=== PATIENT | male | born 1965 | race Two or more races ===

== ENCOUNTER 2016-12-28 14:33 | Emergency (ER) | payer MEDICAID ==
[~2016-12-28] VITALS: Ht 172.7 cm; Wt 117.9 kg
[~2016-12-28 14:33] MED LIST: ALBU18 IN; ALL100T PO; ASPI-231 PO; ATOR40TA52; CALC667C5 PO; CINA90TA; CLOP75TA28 PO; DOXY100C2; ERGO1CAP23 PO; ERGO1CAP6; ESCI10TA53 PO; FERR1TAB17 PO; GABA-339 PO; GABA600T PO; GLIM2TAB33 PO; HYDR-4663 PO; MID10T PO; SEVE800T PO; SODI650T
[2016-12-28] MEDS ORDERED: DEXTROSE 50% SYRINGE 50 ML IV ONE (14:39)
[2016-12-28] MEDS ORDERED: SODIUM CHLORIDE 0.9% 1,000 ML IV ONE (14:41)
[2016-12-28] MEDS ORDERED: DEXTROSE (50%) 50ML SYRG IV ONE (14:45)
[2016-12-28 14:58] LABS: Nucleated Red Blood Cells % 0.1 %; White Blood Cell 16.7 10^3/uL (4.4-10.8)
[2016-12-28 15:00] VITALS: BP 85/65
[2016-12-28 15:00] LABS: Basophils # (auto) 0.2 uL; Eosinophils # (auto) 0.1 uL; Eosinophils % (auto) 0.8 % (0.0-7.0); Hematocrit 30.8 % (41.0-53.0); Hemoglobin 10.3 g/dL (13.5-17.5); Lymphocytes % (auto) 5.8 % (10.0-50.0); Mean Corpuscular Hemoglobin 29.5 pg (28.0-32.0); Mean Corpuscular Hgb Conc. 33.3 g/dL (32.0-36.0); Mean Corpuscular Volume 88.5 fL (80.0-100.0); Mean Platelet Volume 6.7 fL (6.9-10.8); Monocytes # (auto) 2.7 uL; Neutrophils # (auto) 12.8 uL; Neutrophils % (auto) 76.4 % (37.0-80.0); Red Cell Distribution Width 16.2 % (11.8-14.3)
[2016-12-28] MEDS ORDERED: ACETAMINOPHEN 325 MG TAB PO ONE (15:00)
[2016-12-28 15:03] LABS: Platelet Count (auto) 486 10^3/uL (140-450)
[2016-12-28 15:18] LABS: Albumin 3.2 g/dL (3.4-5.0); Alkaline Phosphatase 103 U/L (45-117); Anion Gap 12 (5-15); Aspartate Aminotransferase 33 U/L (15-37); BUN/Creatinine Ratio 5.7; Bilirubin, Total 0.6 mg/dL (0.2-1.0); Blood Urea Nitrogen 54 mg/dL (7-18); Calcium 9.3 mg/dL (8.5-10.1); Carbon Dioxide 28 mmol/L (21-32); Chloride 89 mmol/L (98-107); GFR African American 8 mL/min; GFR Non-African American 6 mL/min; Glucose 58 mg/dL (74-106); Magnesium 2.1 mg/dL (1.6-2.6); Sodium 129 mmol/L (136-145); Total Protein 8.6 g/dL (6.4-8.2)
[2016-12-28 17:35] LABS: REFLEX LACTIC ACID YES OR NO YES
== END 2016-12-28 15:40 | disposition left against medical advice (07) ==
LOC: ER 14:33 → EDBD 14:33 → ER 15:22
DX: E11.65 Type 2 diabetes mellitus with hyperglycemia (principal); I95.9 Hypotension, unspecified; E66.9 Obesity, unspecified; I13.2 Hypertensive heart and chronic kidney disease with heart failure and with stage 5 chronic kidney disease, or end stage renal disease; E11.22 Type 2 diabetes mellitus with diabetic chronic kidney disease; N18.9 Chronic kidney disease, unspecified; I50.9 Heart failure, unspecified; M10.9 Gout, unspecified; E78.5 Hyperlipidemia, unspecified; I25.2 Old myocardial infarction; Z86.73 Personal history of transient ischemic attack (TIA), and cerebral infarction without residual deficits; Z95.1 Presence of aortocoronary bypass graft; Z79.899 Other long term (current) drug therapy; Z68.39 Body mass index [BMI] 39.0-39.9, adult; Z53.29 Procedure and treatment not carried out because of patient's decision for other reasons
CPT/HCPCS: 36415; 80053; 80320; 82962; 83605; 83735; 84484; 85025; 87040; 93005; 96374; 99291; J7042; 94761

== ENCOUNTER 2017-02-09 16:46 | Inpatient (IN) | payer MEDICAID ==
[~2017-02-09] VITALS: Ht 167.6 cm; Wt 83.4 kg
[~2017-02-09 16:46] MED LIST changes: -DOXY100C2; -ERGO1CAP23 PO; -GABA600T PO; -HYDR-4663 PO; +HYDR-4683 PO
[2017-02-09 18:01] LABS: Basophils # (auto) 0 uL; Basophils % (auto) 0.5 % (0.0-2.0); Eosinophils # (auto) 0.3 uL; Hematocrit 26.2 % (41.0-53.0); Hemoglobin 8.1 g/dL (13.5-17.5); Lymphocytes # (auto) 0.6 uL; Lymphocytes % (auto) 7.6 % (10.0-50.0); Mean Corpuscular Hgb Conc. 30.9 g/dL (32.0-36.0); Mean Corpuscular Volume 93.8 fL (80.0-100.0); Monocytes # (auto) 0.8 uL; Monocytes % (auto) 9.7 % (0.0-12.0); Neutrophils # (auto) 6.3 uL; Neutrophils % (auto) 78.2 % (37.0-80.0); Platelet Count (auto) 344 10^3/uL (140-450); Red Cell Distribution Width 16.7 % (11.8-14.3)
[2017-02-09 18:35] LABS: BUN/Creatinine Ratio 5.1; Bilirubin, Total 1.6 mg/dL (0.2-1.0); Calcium 7.7 mg/dL (8.5-10.1); Magnesium 2.4 mg/dL (1.6-2.6); Potassium 3.7 mmol/L (3.5-5.1); Total Protein 7.7 g/dL (6.4-8.2)
[2017-02-09] MEDS ORDERED: FAMOTIDINE (10MG/ML) 2ML VL IV ONE (21:00)
[2017-02-09] MEDS ORDERED: ONDANSETRON HCL 4 MG/2 ML VIAL IV ONE (21:00)
[2017-02-09] MEDS ORDERED: SODIUM CHLORIDE 0.9% 1,000 ML IV ONE (21:00)
[2017-02-09] MEDS ORDERED: HYDROmorphone HCL 2 MG/ML VL IV ONE (21:15)
[2017-02-10] VITALS (7 sets, daily range): BP systolic 102–127; BP diastolic 67–81
[2017-02-10] MEDS ORDERED: MORPHINE SULF INJ 2 MG/ML SYRINGE 1ML IV PRN (00:15)
[2017-02-10] MEDS ORDERED: NITROGLYCERIN 0.4 MG SL TAB SL PRN (00:15)
[2017-02-10] MEDS ORDERED: ONDANSETRON HCL 4 MG/2 ML VIAL IV PRN (00:30)
[2017-02-10] MEDS ORDERED: HYDROmorphone HCL 2 MG/ML VL IV PRN (00:30)
[2017-02-10] MEDS ORDERED: IBUPROFEN 600 MG TAB PO PRN (00:30)
[2017-02-10] MEDS: HYDROcodone-ACET 5/325MG TAB PO PRN ×2 (04:11→08:47)
[2017-02-10 05:07] LABS: Basophils # (auto) 0 uL; Basophils % (auto) 0.6 % (0.0-2.0); Hemoglobin 7.2 g/dL (13.5-17.5); Red Cell Distribution Width 16.4 % (11.8-14.3)
[2017-02-10 05:11] LABS: Eosinophils # (auto) 0.4 uL; Eosinophils % (auto) 4.9 % (0.0-7.0); Hematocrit 21.9 % (41.0-53.0); Lymphocytes % (auto) 13.3 % (10.0-50.0); Mean Corpuscular Hemoglobin 29.7 pg (28.0-32.0); Mean Corpuscular Hgb Conc. 32.7 g/dL (32.0-36.0); Mean Corpuscular Volume 90.7 fL (80.0-100.0); Monocytes % (auto) 13.5 % (0.0-12.0); Neutrophils % (auto) 67.7 % (37.0-80.0); Platelet Count (auto) 277 10^3/uL (140-450); White Blood Cell 7.4 10^3/uL (4.4-10.8)
[2017-02-10 05:25] LABS: Albumin 2.6 g/dL (3.4-5.0); Calcium 7.4 mg/dL (8.5-10.1); Potassium 3.7 mmol/L (3.5-5.1)
[2017-02-10 05:29] LABS: BUN/Creatinine Ratio 5.4
[2017-02-10] MEDS ORDERED: ACETAMINOPHEN 500 MG TAB PO PRN (06:00)
[2017-02-10] MEDS ORDERED: DEXTROSE (50%) 50ML SYRG IV PRN (06:00)
[2017-02-10 06:16] LABS: Bilirubin, Total 1.2 mg/dL (0.2-1.0); Total Protein 6.7 g/dL (6.4-8.2)
[2017-02-10] MEDS: InsuLIN REG 1unit/0.01ml Soln (100units/ml) SC SCH ×3 (07:00→17:23)
[2017-02-10] MEDS: ACCU-CHEK COMFORT CURVE STRIP VI SCH ×3 (07:01→17:22)
[2017-02-10] MEDS: SEVELAMER 800 MG TAB PO SCH ×3 (08:46→18:04)
[2017-02-10 08:58] LABS: Urine Bilirubin Negative (Negative); Urine Blood Negative /uL (Negative); Urine Color Yellow (Yellow); Urine Glucose 1+ mg/dL (Normal); Urine Ketone Negative (Negative); Urine Nitrite Negative (Negative); Urine RBC 1 /hpf (0 - 3); Urine Squamous Epithelial Cell FEW /hpf (<5); Urine pH 6.5 (5.0-8.0)
[2017-02-10] MEDS ORDERED: FAMOTIDINE (10MG/ML) 2ML VL IV SCH (10:00)
[2017-02-10] MEDS ORDERED: GABAPENTIN 300 MG CAP PO SCH (10:00)
[2017-02-11] MEDS ORDERED: EPOETIN ALFA 10,000 UNIT/1 ML VIAL IV ONE (12:00)
[2017-02-11] MEDS ORDERED: SODIUM CHL 0.9% 1000 ML BAG XX ONE (12:00)
== END 2017-02-10 18:35 | disposition home or self-care (01) | DRG 249 ==
LOC: ER 16:54 → TELE 16:55 → TELE-WESTW 02-10 01:40
PROVIDERS: ADMIT Nurse Practitioner Family; ATTEND Internal Medicine
DX: K52.9 Noninfective gastroenteritis and colitis, unspecified (principal); I13.2 Hypertensive heart and chronic kidney disease with heart failure and with stage 5 chronic kidney disease, or end stage renal disease; N18.6 End stage renal disease; I42.9 Cardiomyopathy, unspecified; E11.22 Type 2 diabetes mellitus with diabetic chronic kidney disease; E11.65 Type 2 diabetes mellitus with hyperglycemia; N25.81 Secondary hyperparathyroidism of renal origin; E44.1 Mild protein-calorie malnutrition; E87.1 Hypo-osmolality and hyponatremia; E78.5 Hyperlipidemia, unspecified; D63.1 Anemia in chronic kidney disease; I25.10 Atherosclerotic heart disease of native coronary artery without angina pectoris; R59.1 Generalized enlarged lymph nodes; M19.90 Unspecified osteoarthritis, unspecified site; M10.9 Gout, unspecified; J44.9 Chronic obstructive pulmonary disease, unspecified; I50.9 Heart failure, unspecified; Z99.2 Dependence on renal dialysis; Z95.1 Presence of aortocoronary bypass graft; I25.2 Old myocardial infarction; Z79.82 Long term (current) use of aspirin; Z79.899 Other long term (current) drug therapy; Z68.29 Body mass index [BMI] 29.0-29.9, adult; Z82.3 Family history of stroke; Z83.3 Family history of diabetes mellitus; Z82.49 Family history of ischemic heart disease and other diseases of the circulatory system
CPT/HCPCS: 36415; 71010; 74176; 80053; 81001; 82962; 83690; 83735; 84484; 84550; 85025; 93005; 96361; 96374; 96375; 96376; J2405; J3490

== ENCOUNTER 2017-03-19 09:27 | Inpatient (IN) | payer MEDICAID ==
[~2017-03-19] VITALS: Ht 167.6 cm; Wt 108.9 kg
[2017-03-19] MEDS ORDERED: SODIUM CHLORIDE 0.9% 1,000 ML IV ONE (09:53)
[2017-03-19 09:56] LABS: Eosinophils # (auto) 0 uL; Eosinophils % (auto) 0.1 % (0.0-7.0); Hemoglobin 8.4 g/dL (13.5-17.5); Lymphocytes # (auto) 0.2 uL; Monocytes # (auto) 1.1 uL
[2017-03-19 09:57] LABS: Basophils # (auto) 0 uL; Basophils % (auto) 0.1 % (0.0-2.0); Hematocrit 26.9 % (41.0-53.0); Lymphocytes % (auto) 0.9 % (10.0-50.0); Mean Corpuscular Hemoglobin 28.2 pg (28.0-32.0); Mean Corpuscular Hgb Conc. 31.3 g/dL (32.0-36.0); Mean Corpuscular Volume 90.1 fL (80.0-100.0); Monocytes % (auto) 5.9 % (0.0-12.0); Neutrophils # (auto) 17.1 uL; Platelet Count (auto) 282 10^3/uL (140-450); Red Blood Cells 2.99 10^6/uL (4.5-5.90); Red Cell Distribution Width 18.7 % (11.8-14.3); White Blood Cell 18.4 10^3/uL (4.4-10.8)
[2017-03-19] MEDS ORDERED: LEVOFLOXACIN 500MG 100 ML IV ONE (10:00)
[2017-03-19] MEDS ORDERED: SODIUM CHLORIDE 0.9% 500 ML IV ONE (10:00)
[2017-03-19] MEDS ORDERED: ACETAMINOPHEN 500 MG TAB PO ONE (10:00)
[2017-03-19 10:18] LABS: Albumin 2.5 g/dL (3.4-5.0); Calcium 6.7 mg/dL (8.5-10.1); Potassium 4.6 mmol/L (3.5-5.1)
[2017-03-19 10:21] LABS: BUN/Creatinine Ratio 10.6
[2017-03-19 10:38] LABS: Total Protein 6.6 g/dL (6.4-8.2)
[2017-03-19 10:51] LABS: Lactic Acid w/Reflex 3.8 mmol/L (0.4-2.0)
[2017-03-19] MEDS ORDERED: DEXTROSE (50%) 50ML SYRG IV PRN (12:15)
[2017-03-19] MEDS ORDERED: LACTULOSE 20Gm/30ML SOLN PO PRN (12:15)
[2017-03-19] MEDS ORDERED: NITROGLYCERIN 0.4 MG SL TAB SL PRN (12:15)
[2017-03-19] MEDS: methylPREDNISolone SOD SUCC 40 MG/ML VL IV SCH (12:40)
[2017-03-19] MEDS: MORPHINE SULFATE 4 MG/ML SYR/VIAL IV PRN ×2 (12:40→22:51)
[2017-03-19] MEDS: PANTOPRAZOLE 40 MG/10 ML VIAL IV SCH (12:40)
[2017-03-19] MEDS: ONDANSETRON HCL 4 MG/2 ML VIAL IV PRN ×2 (12:40→22:51)
[2017-03-19] MEDS: ENOXAPARIN SOD 30 MG/0.3 ML SYRINGE SC SCH (12:40)
[2017-03-19] MEDS: cefTRIAXone 1GM/10ml IVPUSH 10 ML IV SCH (12:46)
[2017-03-19] MEDS: MIDODRINE HCL 10 MG TAB PO SCH ×2 (13:36→22:00)
[2017-03-19] MEDS: IPRATROPIUM BROM 0.5 MG/2.5ML INH SOL NEB SCH ×3 (14:00→22:20)
[2017-03-19] MEDS: ALBUTEROL SULF 2.5 MG/0.5ML(0.5%) NEB SOLN NEB SCH ×3 (14:00→22:20)
[2017-03-19] MEDS ORDERED: EPOETIN ALFA 10,000 UNIT/1 ML VIAL IV ONE (16:00)
[2017-03-19] MEDS: ACCU-CHEK COMFORT CURVE STRIP VI SCH (18:11)
[2017-03-19] MEDS: CALCIUM CARB 500 MG CHEW TAB PO SCH (18:16)
[2017-03-19] MEDS: InsuLIN REG 1unit/0.01ml Soln (100units/ml) SC SCH (18:16)
[2017-03-19] MEDS: SEVELAMER 800 MG TAB PO SCH (18:21)
[2017-03-19] MEDS ORDERED: SODIUM BICARBONATE 650 MG TAB PO SCH (22:00)
[2017-03-19] MEDS ORDERED: GABAPENTIN 300 MG CAP PO SCH (22:00)
[2017-03-19] MEDS: ATORVASTATIN 20 MG TAB PO SCH (22:00)
[2017-03-20] MEDS: ACCU-CHEK COMFORT CURVE STRIP VI SCH ×4 (00:47→18:06)
[2017-03-20] MEDS: InsuLIN REG 1unit/0.01ml Soln (100units/ml) SC SCH ×4 (00:48→18:06)
[2017-03-20] MEDS: methylPREDNISolone SOD SUCC 40 MG/ML VL IV SCH ×2 (00:49→14:19)
[2017-03-20] MEDS: IPRATROPIUM BROM 0.5 MG/2.5ML INH SOL NEB SCH ×6 (02:30→22:00)
[2017-03-20] MEDS: ALBUTEROL SULF 2.5 MG/0.5ML(0.5%) NEB SOLN NEB SCH ×6 (02:30→22:00)
[2017-03-20 05:22] LABS: Basophils # (auto) 0 uL; Basophils % (auto) 0.5 % (0.0-2.0); Eosinophils # (auto) 0 uL; Hematocrit 28.6 % (41.0-53.0); Lymphocytes # (auto) 0.2 uL; Lymphocytes % (auto) 1.7 % (10.0-50.0); Mean Corpuscular Hemoglobin 28.1 pg (28.0-32.0); Mean Corpuscular Hgb Conc. 31.3 g/dL (32.0-36.0); Mean Corpuscular Volume 89.7 fL (80.0-100.0); Monocytes # (auto) 0.2 uL; Monocytes % (auto) 2.1 % (0.0-12.0); Neutrophils # (auto) 8.7 uL; Neutrophils % (auto) 95.7 % (37.0-80.0); Platelet Count (auto) 233 10^3/uL (140-450); Red Blood Cells 3.19 10^6/uL (4.5-5.90); White Blood Cell 9.1 10^3/uL (4.4-10.8)
[2017-03-20 05:47] LABS: Albumin 2.6 g/dL (3.4-5.0); BUN/Creatinine Ratio 9.6; Bilirubin, Total 0.7 mg/dL (0.2-1.0); Calcium 6.9 mg/dL (8.5-10.1); Potassium 4.8 mmol/L (3.5-5.1); Total Protein 7.2 g/dL (6.4-8.2)
[2017-03-20] MEDS: MIDODRINE HCL 10 MG TAB PO SCH ×3 (07:55→22:21)
[2017-03-20] MEDS: CALCIUM CARB 500 MG CHEW TAB PO SCH ×3 (08:17→18:10)
[2017-03-20] MEDS: SEVELAMER 800 MG TAB PO SCH ×3 (08:40→18:10)
[2017-03-20] MEDS ORDERED: SODIUM CHL 0.9% 1000 ML BAG XX ONE (09:15)
[2017-03-20] MEDS ORDERED: EPOETIN ALFA 10,000 UNIT/1 ML VIAL IV ONE (09:15)
[2017-03-20] MEDS: cefTRIAXone 1GM/10ml IVPUSH 10 ML IV SCH (09:36)
[2017-03-20] MEDS: HYDROcodone-ACET 5/325MG TAB PO PRN ×3 (09:51→22:21)
[2017-03-20] MEDS ORDERED: SENSIPAR 90 MG PO SCH (10:00)
[2017-03-20] MEDS ORDERED: ESCITALOPRAM 10 MG PO SCH (10:00)
[2017-03-20] MEDS ORDERED: CINACALCET HYDROCHLORIDE 30 MG TAB PO SCH (10:00)
[2017-03-20] MEDS ORDERED: LEVOFLOXACIN 500MG 100 ML IV SCH (10:00)
[2017-03-20] MEDS ORDERED: MIDODRINE HCL 10 MG TAB PO ONE (12:15)
[2017-03-20] MEDS: CITALOPRAM HYDROBR 20 MG TAB PO SCH (14:19)
[2017-03-20] MEDS: ASPirin 81 mg TAB PO SCH (14:19)
[2017-03-20] MEDS: PANTOPRAZOLE 40 MG/10 ML VIAL IV SCH (14:19)
[2017-03-20] MEDS: ENOXAPARIN SOD 30 MG/0.3 ML SYRINGE SC SCH (14:19)
[2017-03-20] MEDS: ALLOPURINOL 100 MG TAB PO SCH (14:19)
[2017-03-20] MEDS: CLOPIDOGREL BISULFATE 75 MG TAB PO SCH (14:19)
[2017-03-20] MEDS ORDERED: GABAPENTIN 300 MG CAP PO SCH (18:00)
[2017-03-20] MEDS: ATORVASTATIN 20 MG TAB PO SCH (22:21)
[2017-03-20] MEDS ORDERED: TEMAZEPAM 15 MG CAP PO ONE (23:30)
[2017-03-21] MEDS: methylPREDNISolone SOD SUCC 40 MG/ML VL IV SCH ×2 (00:30→11:56)
[2017-03-21] MEDS: ACCU-CHEK COMFORT CURVE STRIP VI SCH ×3 (01:30→11:49)
[2017-03-21] MEDS: InsuLIN REG 1unit/0.01ml Soln (100units/ml) SC SCH ×3 (01:30→11:55)
[2017-03-21] MEDS: ALBUTEROL SULF 2.5 MG/0.5ML(0.5%) NEB SOLN NEB SCH ×3 (02:00→10:05)
[2017-03-21] MEDS: IPRATROPIUM BROM 0.5 MG/2.5ML INH SOL NEB SCH ×3 (02:00→10:05)
[2017-03-21] MEDS: MIDODRINE HCL 10 MG TAB PO SCH (06:00)
[2017-03-21 06:15] LABS: BUN/Creatinine Ratio 10.3; Calcium 7.6 mg/dL (8.5-10.1); Potassium 4.4 mmol/L (3.5-5.1)
[2017-03-21] MEDS: cefTRIAXone 1GM/10ml IVPUSH 10 ML IV SCH (08:30)
[2017-03-21] MEDS: CALCIUM CARB 500 MG CHEW TAB PO SCH ×2 (08:30→11:55)
[2017-03-21] MEDS: SEVELAMER 800 MG TAB PO SCH ×2 (08:30→11:55)
[2017-03-21] MEDS: ASPirin 81 mg TAB PO SCH (09:39)
[2017-03-21] MEDS: ENOXAPARIN SOD 30 MG/0.3 ML SYRINGE SC SCH (09:39)
[2017-03-21] MEDS: CITALOPRAM HYDROBR 20 MG TAB PO SCH (09:39)
[2017-03-21] MEDS: ALLOPURINOL 100 MG TAB PO SCH (09:39)
[2017-03-21] MEDS: PANTOPRAZOLE 40 MG/10 ML VIAL IV SCH (09:39)
[2017-03-21] MEDS: CLOPIDOGREL BISULFATE 75 MG TAB PO SCH (09:39)
[2017-03-21 10:45] VITALS: BP 134/99
[2017-03-21 12:40] VITALS: BP 160/97
[2017-05-04] MEDS ORDERED: APIX2.5T PO (11:22)
[2017-06-13] MEDS ORDERED: ALLO100T PO (04:55)
[2017-06-13] MEDS ORDERED: ASPI81CH43 PO ×2 (04:58→05:07)
[2017-06-13] MEDS ORDERED: DOCU100T15 PO (04:59)
[2017-06-13] MEDS ORDERED: APIX2.5T PO (05:00)
[2017-06-13] MEDS ORDERED: CHOL20007 PO (05:03)
[2017-06-13] MEDS ORDERED: NITR0.4S29 SL (05:08)
[2017-06-13] MEDS ORDERED: MID10T PO (05:10)
== END 2017-03-21 12:44 | disposition home or self-care (01) | DRG 720 ==
LOC: EDBD 09:27 → ER 09:34 → TELE 09:35
PROVIDERS: ADMIT Family Medicine; ATTEND Family Medicine
DX: A41.9 Sepsis, unspecified organism (principal); J96.01 Acute respiratory failure with hypoxia; I50.43 Acute on chronic combined systolic (congestive) and diastolic (congestive) heart failure; N18.6 End stage renal disease; E44.0 Moderate protein-calorie malnutrition; J18.9 Pneumonia, unspecified organism; E11.22 Type 2 diabetes mellitus with diabetic chronic kidney disease; N18.5 Chronic kidney disease, stage 5; Z99.2 Dependence on renal dialysis; I13.2 Hypertensive heart and chronic kidney disease with heart failure and with stage 5 chronic kidney disease, or end stage renal disease; N25.81 Secondary hyperparathyroidism of renal origin; E87.1 Hypo-osmolality and hyponatremia; I25.5 Ischemic cardiomyopathy; D63.1 Anemia in chronic kidney disease; I25.10 Atherosclerotic heart disease of native coronary artery without angina pectoris; J45.909 Unspecified asthma, uncomplicated; J44.9 Chronic obstructive pulmonary disease, unspecified; I25.2 Old myocardial infarction; Z95.1 Presence of aortocoronary bypass graft; Z83.3 Family history of diabetes mellitus; Z80.9 Family history of malignant neoplasm, unspecified; Z82.3 Family history of stroke; Z82.49 Family history of ischemic heart disease and other diseases of the circulatory system; M10.9 Gout, unspecified
CPT/HCPCS: 36415; 36600; 71010; 80048; 80053; 80061; 82805; 82962; 83036; 83605; 83880; 84484; 85025; 87040; 90935; 93005; 94640; 96361; 96365; 99291; C9113; J0885; J1815; J1956; J2405

== ENCOUNTER 2017-03-25 20:04 | Inpatient (IN) | payer MEDICAID ==
[~2017-03-25] VITALS: Ht 167.6 cm; Wt 114.2 kg
[~2017-03-25 20:04] MED LIST changes: -CINA90TA
[2017-03-25 21:04] LABS: Basophils # (auto) 0.1 uL; Eosinophils # (auto) 0.1 uL; Eosinophils % (auto) 1.3 % (0.0-7.0); Hemoglobin 9.5 g/dL (13.5-17.5); Lymphocytes # (auto) 0.6 uL; Lymphocytes % (auto) 5.2 % (10.0-50.0); Mean Corpuscular Hemoglobin 27.8 pg (28.0-32.0); Mean Corpuscular Hgb Conc. 30.5 g/dL (32.0-36.0); Mean Corpuscular Volume 91.2 fL (80.0-100.0); Monocytes # (auto) 0.5 uL; Monocytes % (auto) 4.6 % (0.0-12.0); Neutrophils # (auto) 9.5 uL; Neutrophils % (auto) 87.9 % (37.0-80.0); Platelet Count (auto) 295 10^3/uL (140-450); Red Cell Distribution Width 18.9 % (11.8-14.3); White Blood Cell 10.8 10^3/uL (4.4-10.8)
[2017-03-25 21:12] LABS: Albumin 2.7 g/dL (3.4-5.0); BUN/Creatinine Ratio 9.5; Calcium 7.4 mg/dL (8.5-10.1); Magnesium 2.1 mg/dL (1.6-2.6); Potassium 4.3 mmol/L (3.5-5.1)
[2017-03-25 21:14] LABS: Bilirubin, Total 0.6 mg/dL (0.2-1.0); Total Protein 6.7 g/dL (6.4-8.2)
[2017-03-25 21:41] LABS: INR 1.1 (0.9-1.15); Partial Thromboplastin Time 29.4 sec (22.64-33.71)
[2017-03-25] MEDS ORDERED: FUROSEMIDE INJECTION 100 MG in SODIUM CHL 0.9% 90 ML IV ONE (22:15)
[2017-03-25] MEDS ORDERED: NALBUPHINE HCL 10 MG/1ml INJECTION IV ONE (22:15)
[2017-03-25] MEDS ORDERED: SODIUM CHL 0.9% IV ONE (22:15)
[2017-03-25] MEDS ORDERED: FUROSEMIDE IV ONE (22:15)
[2017-03-25] MEDS ORDERED: ONDANSETRON HCL 4 MG/2 ML VIAL IV ONE (22:15)
[2017-03-25] MEDS ORDERED: FUROSEMIDE 40 MG/4 ML VIAL ONE (22:32)
[2017-03-26] MEDS ORDERED: DEXTROSE (50%) 50ML SYRG IV PRN (03:45)
[2017-03-26] MEDS ORDERED: TEMAZEPAM 15 MG CAP PO PRN (03:45)
[2017-03-26] MEDS ORDERED: ONDANSETRON HCL 4 MG/2 ML VIAL IV PRN (03:45)
[2017-03-26] MEDS ORDERED: ACETAMINOPHEN 325 MG TAB PO PRN (03:45)
[2017-03-26] MEDS ORDERED: NITROGLYCERIN 0.4 MG SL TAB SL PRN (03:45)
[2017-03-26] MEDS ORDERED: MORPHINE SULFATE 4 MG/ML SYR/VIAL IV PRN (03:45)
[2017-03-26] MEDS: InsuLIN REG 1unit/0.01ml Soln (100units/ml) SC SCH ×4 (05:30→23:28)
[2017-03-26] MEDS: ACCU-CHEK COMFORT CURVE STRIP VI SCH ×4 (05:30→23:28)
[2017-03-26] MEDS: MIDODRINE HCL 10 MG TAB PO SCH ×3 (05:35→21:33)
[2017-03-26 06:26] VITALS: BP 127/73
[2017-03-26 09:00] VITALS: BP 126/81
[2017-03-26] MEDS: CLOPIDOGREL BISULFATE 75 MG TAB PO SCH (09:02)
[2017-03-26] MEDS: CALCIUM ACETATE 667 MG CAP PO SCH ×3 (09:03→17:08)
[2017-03-26] MEDS: ALLOPURINOL 100 MG TAB PO SCH (09:03)
[2017-03-26] MEDS: SEVELAMER 800 MG TAB PO SCH ×3 (09:03→17:08)
[2017-03-26] MEDS: SODIUM BICARBONATE 650 MG TAB PO SCH ×2 (09:03→21:33)
[2017-03-26] MEDS: PANTOPRAZOLE 40 MG TAB PO SCH (09:03)
[2017-03-26] MEDS: HYDROcodone-ACET 5/325MG TAB PO PRN ×3 (09:04→21:33)
[2017-03-26 09:41] VITALS: BP 127/73
[2017-03-26] MEDS: ENOXAPARIN SOD 30 MG/0.3 ML SYRINGE SC SCH (10:00)
[2017-03-26] MEDS ORDERED: GABAPENTIN 300 MG CAP PO SCH ×2 (10:00→18:00)
[2017-03-26] MEDS: ALBUTEROL SULF 2.5 MG/0.5ML(0.5%) NEB SOLN NEB PRN (10:40)
[2017-03-26] MEDS ORDERED: ALBUMIN 25% 100 ML IV ONE ×2 (11:00→12:30)
[2017-03-26] MEDS ORDERED: MIDODRINE HCL 10 MG TAB PO ONE (11:30)
[2017-03-26 13:00] VITALS: BP 94/54
[2017-03-26 22:00] VITALS: BP 111/61
[2017-03-26] MEDS ORDERED: ATORVASTATIN 20 MG TAB PO SCH (22:00)
[2017-03-27] MEDS: HYDROcodone-ACET 5/325MG TAB PO PRN (03:17)
[2017-03-27] MEDS: ALBUTEROL SULF 2.5 MG/0.5ML(0.5%) NEB SOLN NEB PRN (03:29)
[2017-03-27 05:00] VITALS: BP 120/72
[2017-03-27] MEDS: ACCU-CHEK COMFORT CURVE STRIP VI SCH ×2 (05:45→11:52)
[2017-03-27] MEDS: InsuLIN REG 1unit/0.01ml Soln (100units/ml) SC SCH ×2 (05:45→12:24)
[2017-03-27] MEDS: MIDODRINE HCL 10 MG TAB PO SCH (05:45)
[2017-03-27] MEDS: CALCIUM ACETATE 667 MG CAP PO SCH ×2 (07:57→11:52)
[2017-03-27] MEDS: SEVELAMER 800 MG TAB PO SCH ×2 (07:57→11:52)
[2017-03-27 08:00] VITALS: BP 111/67
[2017-03-27 08:05] LABS: Basophils # (auto) 0 uL; Basophils % (auto) 0.1 % (0.0-2.0); Eosinophils # (auto) 0.1 uL; Hematocrit 28.1 % (41.0-53.0); Mean Corpuscular Hemoglobin 27.9 pg (28.0-32.0); Neutrophils # (auto) 13.3 uL
[2017-03-27 08:06] LABS: Eosinophils % (auto) 0.7 % (0.0-7.0); Hemoglobin 8.6 g/dL (13.5-17.5); Lymphocytes # (auto) 0.4 uL; Lymphocytes % (auto) 2.9 % (10.0-50.0); Mean Corpuscular Hgb Conc. 30.8 g/dL (32.0-36.0); Mean Corpuscular Volume 90.6 fL (80.0-100.0); Monocytes % (auto) 6.7 % (0.0-12.0); Neutrophils % (auto) 89.6 % (37.0-80.0); Nucleated Red Blood Cells % 0.1 %; Platelet Count (auto) 248 10^3/uL (140-450); Red Cell Distribution Width 18.6 % (11.8-14.3); White Blood Cell 14.8 10^3/uL (4.4-10.8)
[2017-03-27 08:23] LABS: BUN/Creatinine Ratio 10.8; Calcium 7.8 mg/dL (8.5-10.1); Phosphorus 5.2 mg/dL (2.5-4.90); Potassium 4.4 mmol/L (3.5-5.1); Total Protein 6.9 g/dL (6.4-8.2)
[2017-03-27] MEDS: CLOPIDOGREL BISULFATE 75 MG TAB PO SCH (10:04)
[2017-03-27] MEDS: ALLOPURINOL 100 MG TAB PO SCH (10:04)
[2017-03-27] MEDS: PANTOPRAZOLE 40 MG TAB PO SCH (10:04)
[2017-03-27] MEDS: SODIUM BICARBONATE 650 MG TAB PO SCH (10:04)
[2017-03-27] MEDS: ENOXAPARIN SOD 30 MG/0.3 ML SYRINGE SC SCH (10:05)
[2017-03-27 11:17] VITALS: BP 111/67
[2017-05-04] MEDS ORDERED: APIX2.5T PO (11:22)
[2017-06-13] MEDS ORDERED: ALLO100T PO (04:55)
[2017-06-13] MEDS ORDERED: ASPI81CH43 PO ×2 (04:58→05:07)
[2017-06-13] MEDS ORDERED: DOCU100T15 PO (04:59)
[2017-06-13] MEDS ORDERED: APIX2.5T PO (05:00)
[2017-06-13] MEDS ORDERED: CHOL20007 PO (05:03)
[2017-06-13] MEDS ORDERED: NITR0.4S29 SL (05:08)
[2017-06-13] MEDS ORDERED: MID10T PO (05:10)
== END 2017-03-27 14:10 | disposition home or self-care (01) | DRG 194 ==
LOC: ER 20:04 → EDBD 20:04 → TELE 20:05 → TELE-WESTW 03-26 05:40
PROVIDERS: ADMIT Nurse Practitioner; ATTEND Family Medicine
PROC: 5A1D70Z Performance of Urinary Filtration, Intermittent, Less than 6 Hours Per Day (ICD-10-PCS; principal; 2017-03-26)
DX: I13.2 Hypertensive heart and chronic kidney disease with heart failure and with stage 5 chronic kidney disease, or end stage renal disease (principal); N18.6 End stage renal disease; E11.22 Type 2 diabetes mellitus with diabetic chronic kidney disease; R18.8 Other ascites; I42.0 Dilated cardiomyopathy; I27.20 Pulmonary hypertension, unspecified; I25.10 Atherosclerotic heart disease of native coronary artery without angina pectoris; I50.43 Acute on chronic combined systolic (congestive) and diastolic (congestive) heart failure; E11.40 Type 2 diabetes mellitus with diabetic neuropathy, unspecified; E66.01 Morbid (severe) obesity due to excess calories; D63.1 Anemia in chronic kidney disease; I08.3 Combined rheumatic disorders of mitral, aortic and tricuspid valves; E78.5 Hyperlipidemia, unspecified; I44.7 Left bundle-branch block, unspecified; I48.91 Unspecified atrial fibrillation; M10.9 Gout, unspecified; J44.9 Chronic obstructive pulmonary disease, unspecified; Z82.3 Family history of stroke; Z82.49 Family history of ischemic heart disease and other diseases of the circulatory system; Z83.3 Family history of diabetes mellitus; Z91.19 Patient's noncompliance with other medical treatment and regimen; Z95.1 Presence of aortocoronary bypass graft; Z99.2 Dependence on renal dialysis; Z80.9 Family history of malignant neoplasm, unspecified; Z79.899 Other long term (current) drug therapy; Z68.41 Body mass index [BMI] 40.0-44.9, adult
CPT/HCPCS: 36415; 71045; 80053; 82962; 83735; 83880; 84100; 84484; 85025; 85610; 85730; 87081; 90935; 93005; 94640; 96365; 96375; J1815; J2405

== ENCOUNTER 2017-03-29 10:52 | Inpatient (IN) | payer MEDICAID ==
[~2017-03-29] VITALS: Ht 167.6 cm; Wt 118.4 kg
[2017-03-29 12:45] LABS: Eosinophils # (auto) 0 uL; Eosinophils % (auto) 0.1 % (0.0-7.0); White Blood Cell 17.2 10^3/uL (4.4-10.8)
[2017-03-29 12:47] LABS: Basophils # (auto) 0.2 uL; Hematocrit 27.2 % (41.0-53.0); Hemoglobin 8.8 g/dL (13.5-17.5); Lymphocytes # (auto) 0.3 uL; Lymphocytes % (auto) 1.6 % (10.0-50.0); Mean Corpuscular Hemoglobin 29.1 pg (28.0-32.0); Mean Corpuscular Hgb Conc. 32.3 g/dL (32.0-36.0); Monocytes # (auto) 1.3 uL; Monocytes % (auto) 7.5 % (0.0-12.0); Neutrophils # (auto) 15.5 uL; Neutrophils % (auto) 89.8 % (37.0-80.0); Nucleated Red Blood Cells % 0.1 %; Platelet Count (auto) 223 10^3/uL (140-450); Red Blood Cells 3.02 10^6/uL (4.5-5.90); Red Cell Distribution Width 18.4 % (11.8-14.3)
[2017-03-29 13:17] LABS: BUN/Creatinine Ratio 9.9; Potassium 4.9 mmol/L (3.5-5.1)
[2017-03-29 13:18] LABS: Albumin 2.9 g/dL (3.4-5.0); Bilirubin, Total 1.1 mg/dL (0.2-1.0); Magnesium 2.3 mg/dL (1.6-2.6)
[2017-03-29] MEDS ORDERED: PIPERACILLIN-TAZOB 3.375GM 50 ML IV ONE (14:30)
[2017-03-29] MEDS ORDERED: HEPARIN SODIUM (PORCINE) 5000 UNITS/ML 1ML VIAL IV ONE (14:30)
[2017-03-29] MEDS ORDERED: NITROGLYCERIN 0.4 MG SL TAB SL PRN (14:45)
[2017-03-29] MEDS ORDERED: VANCOMYCIN PER PHARMACY 0 MG IV SCH (14:45)
[2017-03-29] MEDS ORDERED: DEXTROSE (50%) 50ML SYRG IV PRN (14:45)
[2017-03-29] MEDS ORDERED: ONDANSETRON HCL 4 MG/2 ML VIAL IV PRN (14:45)
[2017-03-29] MEDS ORDERED: MORPHINE SULF INJ 2 MG/ML SYRINGE 1ML IV PRN (14:45)
[2017-03-29 15:05] LABS: INR 1.24 (0.9-1.15); Partial Thromboplastin Time 31.7 sec (22.64-33.71); Prothrombin Time 13.6 sec (9.37-12.3)
[2017-03-29 15:18] LABS: Lactic Acid w/Reflex 4.1 mmol/L (0.4-2.0)
[2017-03-29] MEDS ORDERED: ERGO1CAP23 PO (15:19)
[2017-03-29 15:35] VITALS: BP 89/62
[2017-03-29] MEDS ORDERED: VANCOMYCIN 1,500 MG in D5W 5% 250 ML IV ONE (17:00)
[2017-03-29] MEDS: ACCU-CHEK COMFORT CURVE STRIP VI SCH ×2 (17:50→21:18)
[2017-03-29] MEDS: InsuLIN REG 1unit/0.01ml Soln (100units/ml) SC SCH ×2 (17:54→21:28)
[2017-03-29] MEDS: CALCIUM ACETATE 667 MG CAP PO SCH (17:58)
[2017-03-29] MEDS: SEVELAMER 800 MG TAB PO SCH (17:58)
[2017-03-29] MEDS: ALBUTEROL SULF 2.5 MG/0.5ML(0.5%) NEB SOLN NEB SCH (18:10)
[2017-03-29] MEDS: IPRATROPIUM BROM 0.5 MG/2.5ML INH SOL NEB SCH (18:10)
[2017-03-29] MEDS: NOREPINEPHRINE 8 MG/250ML KIT 250 ML IV SCH (20:18)
[2017-03-29] MEDS: ATORVASTATIN 20 MG TAB PO SCH (21:18)
[2017-03-30] MEDS: ALBUTEROL SULF 2.5 MG/0.5ML(0.5%) NEB SOLN NEB SCH ×4 (00:03→18:32)
[2017-03-30] MEDS: IPRATROPIUM BROM 0.5 MG/2.5ML INH SOL NEB SCH ×4 (00:03→18:32)
[2017-03-30] MEDS: PIPERACILLIN-TAZOB 2.25GM 50 ML IV SCH ×2 (03:07→18:00)
[2017-03-30] MEDS: ACCU-CHEK COMFORT CURVE STRIP VI SCH ×4 (06:18→21:40)
[2017-03-30] MEDS: InsuLIN REG 1unit/0.01ml Soln (100units/ml) SC SCH ×4 (06:18→21:45)
[2017-03-30 07:12] LABS: Basophils # (auto) 0.1 uL; Eosinophils # (auto) 0.1 uL; Hemoglobin 8.1 g/dL (13.5-17.5); Lymphocytes # (auto) 0.6 uL; Neutrophils # (auto) 13.2 uL; Neutrophils % (auto) 82.8 % (37.0-80.0)
[2017-03-30 07:14] LABS: Basophils % (auto) 0.4 % (0.0-2.0); Eosinophils % (auto) 0.7 % (0.0-7.0); Hematocrit 26.5 % (41.0-53.0); Lymphocytes % (auto) 3.8 % (10.0-50.0); Mean Corpuscular Hemoglobin 27.7 pg (28.0-32.0); Mean Corpuscular Hgb Conc. 30.4 g/dL (32.0-36.0); Mean Corpuscular Volume 91.2 fL (80.0-100.0); Monocytes % (auto) 12.3 % (0.0-12.0); Nucleated Red Blood Cells % 0.1 %; Platelet Count (auto) 237 10^3/uL (140-450); Red Blood Cells 2.91 10^6/uL (4.5-5.90); Red Cell Distribution Width 19.1 % (11.8-14.3)
[2017-03-30 07:23] LABS: INR 1.21 (0.9-1.15); Partial Thromboplastin Time 26.7 sec (22.64-33.71); Prothrombin Time 13.2 sec (9.37-12.3)
[2017-03-30 07:39] LABS: Albumin 2.9 g/dL (3.4-5.0); BUN/Creatinine Ratio 9.7; Bilirubin, Total 0.9 mg/dL (0.2-1.0); Calcium 8.1 mg/dL (8.5-10.1); Potassium 4.8 mmol/L (3.5-5.1); Total Protein 7.2 g/dL (6.4-8.2)
[2017-03-30] MEDS: CALCIUM ACETATE 667 MG CAP PO SCH ×3 (08:32→18:48)
[2017-03-30] MEDS: SEVELAMER 800 MG TAB PO SCH ×3 (09:05→18:48)
[2017-03-30] MEDS: CLOPIDOGREL BISULFATE 75 MG TAB PO SCH (09:37)
[2017-03-30] MEDS: ENOXAPARIN SOD 30 MG/0.3 ML SYRINGE SC SCH (09:37)
[2017-03-30] MEDS: ASPirin-EC 81 mg tab PO SCH (09:37)
[2017-03-30] MEDS: ALLOPURINOL 100 MG TAB PO SCH (09:39)
[2017-03-30] MEDS ORDERED: ALLOPURINOL 100 MG TAB PO SCH (10:00)
[2017-03-30] MEDS ORDERED: HEPARIN SODIUM (PORCINE) 5000 UNITS/ML 1ML VIAL IV ONE (12:15)
[2017-03-30] MEDS ORDERED: SODIUM CHLORIDE 0.9% 2,000 ML IV ONE (12:30)
[2017-03-30] MEDS: NOREPINEPHRINE 8 MG/250ML KIT 250 ML IV SCH (14:42)
[2017-03-30] MEDS ORDERED: VANCOMYCIN 1,500 MG in SODIUM CHL 0.9% 250 ML IV ONE (18:00)
[2017-03-30 18:49] VITALS: BP 113/64
[2017-03-30] MEDS: ATORVASTATIN 20 MG TAB PO SCH (21:44)
[2017-03-30 22:00] VITALS: BP 96/58
[2017-03-30] MEDS: HYDROcodone-ACET 5/325MG TAB PO PRN (23:07)
[2017-03-31] VITALS (7 sets, daily range): BP systolic 85–114; BP diastolic 59–82
[2017-03-31] MEDS: ALBUTEROL SULF 2.5 MG/0.5ML(0.5%) NEB SOLN NEB SCH ×4 (00:11→19:32)
[2017-03-31] MEDS: IPRATROPIUM BROM 0.5 MG/2.5ML INH SOL NEB SCH ×4 (00:11→19:32)
[2017-03-31] MEDS: HYDROcodone-ACET 5/325MG TAB PO PRN ×4 (03:55→21:18)
[2017-03-31] MEDS: PIPERACILLIN-TAZOB 2.25GM 50 ML IV SCH ×2 (04:13→15:03)
[2017-03-31] MEDS: InsuLIN REG 1unit/0.01ml Soln (100units/ml) SC SCH ×4 (06:47→21:27)
[2017-03-31] MEDS: ACCU-CHEK COMFORT CURVE STRIP VI SCH ×4 (06:48→21:19)
[2017-03-31] MEDS: SEVELAMER 800 MG TAB PO SCH ×3 (09:21→19:00)
[2017-03-31] MEDS: CLOPIDOGREL BISULFATE 75 MG TAB PO SCH (09:22)
[2017-03-31] MEDS: CALCIUM ACETATE 667 MG CAP PO SCH ×3 (09:22→18:59)
[2017-03-31] MEDS: ALLOPURINOL 100 MG TAB PO SCH (09:22)
[2017-03-31] MEDS: ASPirin-EC 81 mg tab PO SCH (09:23)
[2017-03-31] MEDS: ENOXAPARIN SOD 30 MG/0.3 ML SYRINGE SC SCH (09:23)
[2017-03-31] MEDS ORDERED: ERGOCALCIFEROL 50,000 UNIT(1.25MG) CAP PO SCH ×2 (10:00→15:00)
[2017-03-31 10:18] LABS: Basophils # (auto) 0 uL; Basophils % (auto) 0.1 % (0.0-2.0); Eosinophils # (auto) 0.2 uL; Hemoglobin 8.8 g/dL (13.5-17.5); Lymphocytes # (auto) 0.6 uL
[2017-03-31 10:19] LABS: Eosinophils % (auto) 1.2 % (0.0-7.0); Hematocrit 29.1 % (41.0-53.0); Lymphocytes % (auto) 4.4 % (10.0-50.0); Mean Corpuscular Hemoglobin 27.9 pg (28.0-32.0); Mean Corpuscular Hgb Conc. 30.3 g/dL (32.0-36.0); Mean Corpuscular Volume 91.9 fL (80.0-100.0); Monocytes # (auto) 1.9 uL; Monocytes % (auto) 14.1 % (0.0-12.0); Neutrophils # (auto) 11.1 uL; Neutrophils % (auto) 80.2 % (37.0-80.0); Nucleated Red Blood Cells % 0.1 %; Platelet Count (auto) 269 10^3/uL (140-450); Red Blood Cells 3.17 10^6/uL (4.5-5.90); Red Cell Distribution Width 19.6 % (11.8-14.3); White Blood Cell 13.8 10^3/uL (4.4-10.8)
[2017-03-31 10:23] LABS: Urine Bacteria NONE SEEN /hpf (None Seen); Urine Blood TRACE /uL (Negative); Urine Mucus FEW (None Seen); Urine Specific Gravity 1.018 (1.001-1.035); Urine WBC 5 /hpf (0 - 3)
[2017-03-31 10:28] LABS: INR 1.13 (0.9-1.15); Prothrombin Time 12.3 sec (9.37-12.3)
[2017-03-31 10:36] LABS: Potassium 5.2 mmol/L (3.5-5.1)
[2017-03-31 10:37] LABS: BUN/Creatinine Ratio 8.6; Calcium 8.4 mg/dL (8.5-10.1); Total Protein 7.6 g/dL (6.4-8.2)
[2017-03-31] MEDS ORDERED: ACETAMINOPHEN 325 MG TAB PO PRN (12:00)
[2017-03-31] MEDS: ATORVASTATIN 20 MG TAB PO SCH (21:17)
[2017-04-01] VITALS (7 sets, daily range): BP systolic 97–128; BP diastolic 30–78
[2017-04-01] MEDS: ALBUTEROL SULF 2.5 MG/0.5ML(0.5%) NEB SOLN NEB SCH ×3 (00:32→19:54)
[2017-04-01] MEDS: IPRATROPIUM BROM 0.5 MG/2.5ML INH SOL NEB SCH ×3 (00:32→19:54)
[2017-04-01] MEDS: PIPERACILLIN-TAZOB 2.25GM 50 ML IV SCH ×2 (03:41→18:27)
[2017-04-01] MEDS: InsuLIN REG 1unit/0.01ml Soln (100units/ml) SC SCH ×4 (06:23→22:00)
[2017-04-01] MEDS: ACCU-CHEK COMFORT CURVE STRIP VI SCH ×4 (06:23→22:00)
[2017-04-01 07:18] LABS: Basophils # (auto) 0 uL; Eosinophils % (auto) 1.4 % (0.0-7.0); Mean Corpuscular Hgb Conc. 31.4 g/dL (32.0-36.0); Monocytes # (auto) 1.4 uL; Neutrophils # (auto) 8.6 uL; Nucleated Red Blood Cells % 0.1 %; Red Cell Distribution Width 19.6 % (11.8-14.3); White Blood Cell 10.6 10^3/uL (4.4-10.8)
[2017-04-01 07:20] LABS: Basophils % (auto) 0.3 % (0.0-2.0); Eosinophils # (auto) 0.1 uL; Hematocrit 24.2 % (41.0-53.0); Hemoglobin 7.6 g/dL (13.5-17.5); Lymphocytes # (auto) 0.4 uL; Lymphocytes % (auto) 4.2 % (10.0-50.0); Mean Corpuscular Hemoglobin 28.4 pg (28.0-32.0); Mean Corpuscular Volume 90.5 fL (80.0-100.0); Monocytes % (auto) 12.7 % (0.0-12.0); Neutrophils % (auto) 81.4 % (37.0-80.0); Platelet Count (auto) 224 10^3/uL (140-450); Red Blood Cells 2.68 10^6/uL (4.5-5.90)
[2017-04-01 07:36] LABS: Albumin 2.6 g/dL (3.4-5.0); BUN/Creatinine Ratio 8.8; Calcium 8.5 mg/dL (8.5-10.1); Potassium 5.1 mmol/L (3.5-5.1)
[2017-04-01 07:38] LABS: Bilirubin, Total 0.9 mg/dL (0.2-1.0); Total Protein 6.8 g/dL (6.4-8.2)
[2017-04-01] MEDS: SEVELAMER 800 MG TAB PO SCH ×3 (08:00→18:27)
[2017-04-01] MEDS: CALCIUM ACETATE 667 MG CAP PO SCH ×3 (08:00→18:27)
[2017-04-01] MEDS: ENOXAPARIN SOD 30 MG/0.3 ML SYRINGE SC SCH (10:00)
[2017-04-01] MEDS ORDERED: VANCOMYCIN 1GM/250ML 250 ML IV ONE (10:00)
[2017-04-01] MEDS ORDERED: VANCOMYCIN HCL 1000 MG VL IR ONE (10:00)
[2017-04-01] MEDS ORDERED: ceFAZolin 1GM/50ML 50 ML IV ONE (10:00)
[2017-04-01] MEDS: ASPirin-EC 81 mg tab PO SCH (10:00)
[2017-04-01] MEDS: ALLOPURINOL 100 MG TAB PO SCH (10:00)
[2017-04-01] MEDS: CLOPIDOGREL BISULFATE 75 MG TAB PO SCH (10:00)
[2017-04-01] MEDS ORDERED: LIDOCAINE 2%HCL (LOCAL ANESTH.) INJ 20ML MDV ONE (11:28)
[2017-04-01] MEDS ORDERED: IOHEXOL 350 MG/ML 100ML IJ ONE (11:35)
[2017-04-01] MEDS ORDERED: fentaNYL CITRATE 100 MCG/2 ML VL ONE (11:43)
[2017-04-01] MEDS ORDERED: MIDAZOLAM HCL 1MG/1ML-2 ML VIAL ONE (11:43)
[2017-04-01] MEDS ORDERED: ATROPINE SULF 0.5 MG/5ML SYR ONE (12:13)
[2017-04-01] MEDS ORDERED: FUROSEMIDE 40 MG/4 ML VIAL ONE (13:07)
[2017-04-01] MEDS ORDERED: ACETAMINOPHEN 325 MG TAB PO PRN (14:00)
[2017-04-01 15:07] LABS: Eosinophils # (auto) 0.1 uL; Hematocrit 24.1 % (41.0-53.0); Monocytes # (auto) 1.4 uL; Neutrophils # (auto) 10.8 uL; Nucleated Red Blood Cells % 0.2 %; White Blood Cell 12.6 10^3/uL (4.4-10.8)
[2017-04-01 15:10] LABS: Basophils # (auto) 0 uL; Eosinophils % (auto) 0.6 % (0.0-7.0); Hemoglobin 7.5 g/dL (13.5-17.5); Lymphocytes # (auto) 0.4 uL; Lymphocytes % (auto) 2.8 % (10.0-50.0); Mean Corpuscular Hemoglobin 28.1 pg (28.0-32.0); Mean Corpuscular Volume 90.7 fL (80.0-100.0); Monocytes % (auto) 11.1 % (0.0-12.0); Neutrophils % (auto) 85.5 % (37.0-80.0); Platelet Count (auto) 236 10^3/uL (140-450); Red Blood Cells 2.66 10^6/uL (4.5-5.90)
[2017-04-01] MEDS ORDERED: EPOETIN ALFA 10,000 UNIT/1 ML VIAL IV ONE (15:45)
[2017-04-01] MEDS: MORPHINE SULF INJ 2 MG/ML SYRINGE 1ML IV PRN ×2 (18:26→23:07)
[2017-04-01] MEDS: ATORVASTATIN 20 MG TAB PO SCH (22:34)
[2017-04-02] MEDS: ALBUTEROL SULF 2.5 MG/0.5ML(0.5%) NEB SOLN NEB SCH ×4 (00:07→12:43)
[2017-04-02] MEDS: IPRATROPIUM BROM 0.5 MG/2.5ML INH SOL NEB SCH ×4 (00:07→12:43)
[2017-04-02] MEDS: PIPERACILLIN-TAZOB 2.25GM 50 ML IV SCH ×2 (02:55→15:17)
[2017-04-02 05:00] VITALS: BP 106/71
[2017-04-02] MEDS: ACCU-CHEK COMFORT CURVE STRIP VI SCH ×3 (05:51→17:00)
[2017-04-02] MEDS: InsuLIN REG 1unit/0.01ml Soln (100units/ml) SC SCH ×3 (05:51→17:00)
[2017-04-02 08:00] VITALS: BP 115/51
[2017-04-02 08:28] LABS: Basophils # (auto) 0 uL; Basophils % (auto) 0.3 % (0.0-2.0); Lymphocytes # (auto) 0.6 uL
[2017-04-02 08:30] LABS: Eosinophils # (auto) 0.1 uL; Eosinophils % (auto) 1.4 % (0.0-7.0); Hematocrit 23.7 % (41.0-53.0); Hemoglobin 7.5 g/dL (13.5-17.5); Lymphocytes % (auto) 6.5 % (10.0-50.0); Mean Corpuscular Hemoglobin 28.2 pg (28.0-32.0); Mean Corpuscular Hgb Conc. 31.5 g/dL (32.0-36.0); Mean Corpuscular Volume 89.7 fL (80.0-100.0); Monocytes # (auto) 1.4 uL; Monocytes % (auto) 15.2 % (0.0-12.0); Neutrophils # (auto) 7.2 uL; Neutrophils % (auto) 76.6 % (37.0-80.0); Platelet Count (auto) 233 10^3/uL (140-450); Red Blood Cells 2.64 10^6/uL (4.5-5.90); Red Cell Distribution Width 19.6 % (11.8-14.3); White Blood Cell 9.3 10^3/uL (4.4-10.8)
[2017-04-02 08:47] LABS: BUN/Creatinine Ratio 7.9; Calcium 8.3 mg/dL (8.5-10.1); Potassium 4.9 mmol/L (3.5-5.1)
[2017-04-02] MEDS: SEVELAMER 800 MG TAB PO SCH ×2 (08:58→12:36)
[2017-04-02] MEDS: CALCIUM ACETATE 667 MG CAP PO SCH ×2 (08:58→12:36)
[2017-04-02] MEDS: MORPHINE SULF INJ 2 MG/ML SYRINGE 1ML IV PRN (08:59)
[2017-04-02 09:13] VITALS: BP 115/51
[2017-04-02] MEDS: ASPirin-EC 81 mg tab PO SCH (10:45)
[2017-04-02] MEDS: CLOPIDOGREL BISULFATE 75 MG TAB PO SCH (10:45)
[2017-04-02] MEDS: ALLOPURINOL 100 MG TAB PO SCH (10:45)
[2017-04-02] MEDS: ENOXAPARIN SOD 30 MG/0.3 ML SYRINGE SC SCH (10:46)
[2017-04-02] MEDS ORDERED: SODIUM BICARBONATE 8.4% INJ 50ML SYRINGE IV ONE (11:45)
[2017-04-02] MEDS: HYDROcodone-ACET 5/325MG TAB PO PRN (12:36)
[2017-04-02 16:21] VITALS: BP 97/63
[2017-04-15] MEDS ORDERED: CLOPIDOGREL BISULFATE 75 MG TAB PO SCH (10:00)
[2017-04-15] MEDS ORDERED: DIGOXIN 0.125 MG TAB PO SCH (10:00)
[2017-04-15] MEDS ORDERED: ASPirin 81 mg TAB PO SCH (10:00)
[2017-04-15] MEDS ORDERED: CARVEDILOL 3.125 MG TAB PO SCH (10:00)
[2017-04-15] MEDS ORDERED: SPIRONOLACTONE 25 MG TAB PO SCH (10:00)
[2017-04-15] MEDS ORDERED: hydrALAZINE HCL 25 MG TAB PO SCH (10:00)
[2017-04-15] MEDS ORDERED: ISOSORBIDE DINITRATE 10 MG TAB PO SCH (12:00)
[2017-05-04] MEDS ORDERED: APIX2.5T PO (11:22)
[2017-06-13] MEDS ORDERED: ALLO100T PO (04:55)
[2017-06-13] MEDS ORDERED: ASPI81CH43 PO ×2 (04:58→05:07)
[2017-06-13] MEDS ORDERED: DOCU100T15 PO (04:59)
[2017-06-13] MEDS ORDERED: APIX2.5T PO (05:00)
[2017-06-13] MEDS ORDERED: CHOL20007 PO (05:03)
[2017-06-13] MEDS ORDERED: NITR0.4S29 SL (05:08)
[2017-06-13] MEDS ORDERED: MID10T PO (05:10)
== END 2017-04-02 18:58 | disposition home or self-care (01) | DRG 710 ==
LOC: ER 10:52 → EDUNIT# 10:52 → EDBD 10:52 → OVERFLOW 10:53 → TELE-EAST 03-30 22:50
PROVIDERS: ADMIT Internal Medicine; ATTEND Internal Medicine
PROC: 0JH609Z Insertion of Cardiac Resynchronization Defibrillator Pulse Generator into Chest Subcutaneous Tissue and Fascia, Open Approach (ICD-10-PCS; principal; 2017-04-01)
PROC: 02HL3KZ Insertion of Defibrillator Lead into Left Ventricle, Percutaneous Approach (ICD-10-PCS; 2017-04-01)
PROC: 02H63KZ Insertion of Defibrillator Lead into Right Atrium, Percutaneous Approach (ICD-10-PCS; 2017-04-01)
PROC: 02HK3KZ Insertion of Defibrillator Lead into Right Ventricle, Percutaneous Approach (ICD-10-PCS; 2017-04-01)
PROC: B5171ZZ Fluoroscopy of Left Subclavian Vein using Low Osmolar Contrast (ICD-10-PCS; 2017-04-01)
PROC: B31N1ZZ Fluoroscopy of Other Upper Arteries using Low Osmolar Contrast (ICD-10-PCS; 2017-04-01)
DX: A41.9 Sepsis, unspecified organism (principal); I21.4 Non-ST elevation (NSTEMI) myocardial infarction; R65.21 Severe sepsis with septic shock; I50.43 Acute on chronic combined systolic (congestive) and diastolic (congestive) heart failure; J18.9 Pneumonia, unspecified organism; N18.6 End stage renal disease; I42.0 Dilated cardiomyopathy; E11.22 Type 2 diabetes mellitus with diabetic chronic kidney disease; I27.20 Pulmonary hypertension, unspecified; I13.2 Hypertensive heart and chronic kidney disease with heart failure and with stage 5 chronic kidney disease, or end stage renal disease; Z99.2 Dependence on renal dialysis; J44.0 Chronic obstructive pulmonary disease with (acute) lower respiratory infection; E66.9 Obesity, unspecified; I25.5 Ischemic cardiomyopathy; M10.9 Gout, unspecified; R09.02 Hypoxemia; E78.5 Hyperlipidemia, unspecified; D64.9 Anemia, unspecified; E66.01 Morbid (severe) obesity due to excess calories; I25.10 Atherosclerotic heart disease of native coronary artery without angina pectoris; I25.2 Old myocardial infarction; Z79.82 Long term (current) use of aspirin; Z79.899 Other long term (current) drug therapy; Z82.3 Family history of stroke; Z79.84 Long term (current) use of oral hypoglycemic drugs; Z82.49 Family history of ischemic heart disease and other diseases of the circulatory system; Z83.3 Family history of diabetes mellitus; Z91.19 Patient's noncompliance with other medical treatment and regimen; Z95.1 Presence of aortocoronary bypass graft; Z95.5 Presence of coronary angioplasty implant and graft; Z95.810 Presence of automatic (implantable) cardiac defibrillator; Z68.41 Body mass index [BMI] 40.0-44.9, adult
CPT/HCPCS: 33225; 33249; 36415; 71045; 71046; 74021; 75710; 76499; 80048; 80053; 80202; 81001; 82962; 83036; 83605; 83735; 83880; 84484; 85025; 85610; 85730; 87040; 87081; 87400; 90935; 93005; 94640; 96374; 96375; 99152; 99153; G0378; J0461; J0690; J0885; J1815; J2250; J2543; J7060

== ENCOUNTER 2017-04-13 12:03 | Inpatient (IN) | payer MEDICAID ==
[~2017-04-13] VITALS: Ht 167.6 cm; Wt 108.9 kg
[~2017-04-13 12:03] MED LIST changes: +ERGO1CAP23 PO; -ERGO1CAP6
[2017-04-13 13:33] LABS: Basophils # (auto) 0.1 uL; Eosinophils # (auto) 0.1 uL; Eosinophils % (auto) 0.9 % (0.0-7.0); Hematocrit 31.5 % (41.0-53.0); Hemoglobin 9.5 g/dL (13.5-17.5); Lymphocytes # (auto) 2.1 uL; Lymphocytes % (auto) 17.4 % (10.0-50.0); Mean Corpuscular Hemoglobin 26.8 pg (28.0-32.0); Mean Corpuscular Volume 89.5 fL (80.0-100.0); Monocytes # (auto) 1.2 uL; Monocytes % (auto) 10.1 % (0.0-12.0); Neutrophils # (auto) 8.5 uL; Neutrophils % (auto) 70.6 % (37.0-80.0); Nucleated Red Blood Cells % 0.1 %; Platelet Count (auto) 519 10^3/uL (140-450); Red Blood Cells 3.52 10^6/uL (4.5-5.90); Red Cell Distribution Width 19.6 % (11.8-14.3)
[2017-04-13 14:27] LABS: Chloride 92 mmol/L (98-107); Potassium 4.3 mmol/L (3.5-5.1); Sodium 135 mmol/L (136-145)
[2017-04-13 14:31] LABS: Alanine Aminotransferase 10 U/L (16-61); Anion Gap 16 (5-15); Aspartate Aminotransferase 23 U/L (15-37); BUN/Creatinine Ratio 5.2; Blood Urea Nitrogen 27 mg/dL (7-18); Calcium 8.3 mg/dL (8.5-10.1); Carbon Dioxide 27 mmol/L (21-32); GFR African American 15 mL/min; GFR Non-African American 12 mL/min; Glucose 125 mg/dL (74-106)
[2017-04-13 14:33] LABS: Alkaline Phosphatase 98 U/L (45-117); Bilirubin, Total 0.9 mg/dL (0.2-1.0); Total Protein 8.3 g/dL (6.4-8.2)
[2017-04-13] MEDS ORDERED: NITROGLYCERIN 0.4 MG SL TAB SL PRN (15:30)
[2017-04-13] MEDS ORDERED: DEXTROSE (50%) 50ML SYRG IV PRN (15:30)
[2017-04-13] MEDS ORDERED: MORPHINE SULFATE 10 MG/ML INJ 1ML SDV IV PRN (15:30)
[2017-04-13] MEDS ORDERED: CLOPIDOGREL BISULFATE 75 MG TAB PO ONE (15:45)
[2017-04-13] MEDS ORDERED: ASPirin 81 mg TAB PO ONE (15:45)
[2017-04-13] MEDS ORDERED: ALLOPURINOL 100 MG TAB PO ONE (15:45)
[2017-04-13] MEDS ORDERED: CAR3125T PO (15:48)
[2017-04-13] MEDS ORDERED: PANT40TA2 PO (15:48)
[2017-04-13] MEDS ORDERED: DOCU100T15 PO (15:48)
[2017-04-13] MEDS ORDERED: AMIO100T3 PO (15:48)
[2017-04-13] MEDS ORDERED: CINA30TA2 PO (15:48)
[2017-04-13] MEDS ORDERED: ONDA8TAB6 PO (15:48)
[2017-04-13] MEDS: ONDANSETRON HCL 4 MG/2 ML VIAL IV PRN ×2 (16:16→22:22)
[2017-04-13 16:32] LABS: Lactic Acid w/Reflex 7.1 mmol/L (0.4-2.0)
[2017-04-13 16:57] LABS: Urine Bacteria FEW /hpf (None Seen); Urine Blood Negative /uL (Negative); Urine Hyaline Cast FEW /lpf (0 - 2); Urine Specific Gravity 1.017 (1.001-1.035); Urine WBC 5 /hpf (0 - 3)
[2017-04-13] MEDS: InsuLIN REG 1unit/0.01ml Soln (100units/ml) SC SCH ×2 (17:00→22:00)
[2017-04-13] MEDS ORDERED: EPOETIN ALFA 10,000 UNIT/1 ML VIAL IV ONE (17:00)
[2017-04-13] MEDS ORDERED: SODIUM CHL 0.9% 1000 ML BAG XX ONE (17:00)
[2017-04-13] MEDS: ACCU-CHEK COMFORT CURVE STRIP VI SCH ×2 (17:06→22:26)
[2017-04-13] MEDS: CALCIUM ACETATE 667 MG CAP PO SCH (18:00)
[2017-04-13] MEDS: MORPHINE SULFATE 10 MG/ML INJ 1ML SDV IV PRN (22:22)
[2017-04-13] MEDS: ATORVASTATIN 20 MG TAB PO SCH (22:23)
[2017-04-13] MEDS: GABAPENTIN 300 MG CAP PO SCH (22:23)
[2017-04-14] MEDS: METOCLOPRAMIDE HCL 10 MG TAB PO PRN (02:30)
[2017-04-14] MEDS: MORPHINE SULFATE 10 MG/ML INJ 1ML SDV IV PRN ×2 (02:30→09:45)
[2017-04-14] MEDS: InsuLIN REG 1unit/0.01ml Soln (100units/ml) SC SCH ×4 (06:35→22:27)
[2017-04-14] MEDS: ACCU-CHEK COMFORT CURVE STRIP VI SCH ×4 (06:35→22:27)
[2017-04-14 07:55] LABS: BUN/Creatinine Ratio 4.6; Calcium 7.8 mg/dL (8.5-10.1)
[2017-04-14 07:57] LABS: Eosinophils # (auto) 0.1 uL; Eosinophils % (auto) 0.7 % (0.0-7.0); Hemoglobin 7.6 g/dL (13.5-17.5); Mean Corpuscular Hemoglobin 27.4 pg (28.0-32.0); Monocytes # (auto) 1.6 uL; Nucleated Red Blood Cells % 0.1 %; Red Blood Cells 2.78 10^6/uL (4.5-5.90)
[2017-04-14 07:59] LABS: Basophils # (auto) 0.1 uL; Basophils % (auto) 0.5 % (0.0-2.0); Lymphocytes % (auto) 8.4 % (10.0-50.0); Mean Corpuscular Hgb Conc. 30.5 g/dL (32.0-36.0); Mean Corpuscular Volume 89.7 fL (80.0-100.0); Monocytes % (auto) 13.4 % (0.0-12.0); Neutrophils # (auto) 9.3 uL; Platelet Count (auto) 323 10^3/uL (140-450); Red Cell Distribution Width 19.5 % (11.8-14.3); White Blood Cell 12.1 10^3/uL (4.4-10.8)
[2017-04-14] MEDS: CALCIUM ACETATE 667 MG CAP PO SCH ×3 (08:26→18:37)
[2017-04-14 09:11] LABS: INR 1.24 (0.9-1.15); Prothrombin Time 13.6 sec (9.37-12.3)
[2017-04-14] MEDS ORDERED: LIDOCAINE 2%HCL (LOCAL ANESTH.) INJ 20ML MDV ONE (09:44)
[2017-04-14] MEDS: ONDANSETRON HCL 4 MG/2 ML VIAL IV PRN (09:45)
[2017-04-14] MEDS: ASPirin 81 mg TAB PO SCH (10:46)
[2017-04-14] MEDS: GABAPENTIN 300 MG CAP PO SCH ×2 (10:46→18:37)
[2017-04-14] MEDS: CLOPIDOGREL BISULFATE 75 MG TAB PO SCH (10:47)
[2017-04-14] MEDS: ALLOPURINOL 100 MG TAB PO SCH (10:47)
[2017-04-14] MEDS ORDERED: SODIUM CHL 0.9% 1000 ML BAG XX ONE (14:00)
[2017-04-14] MEDS ORDERED: EPOETIN ALFA 10,000 UNIT/1 ML VIAL IV ONE (14:00)
[2017-04-14] MEDS: ATORVASTATIN 20 MG TAB PO SCH (22:26)
[2017-04-15] VITALS (9 sets, daily range): BP systolic 90–120; BP diastolic 60–76
[2017-04-15] MEDS: HYDROcodone-ACET 5/325MG TAB PO PRN ×2 (01:49→08:04)
[2017-04-15 05:35] LABS: Basophils # (auto) 0 uL; Eosinophils # (auto) 0.1 uL; Monocytes # (auto) 1.2 uL
[2017-04-15 05:36] LABS: Basophils % (auto) 0.7 % (0.0-2.0); Eosinophils % (auto) 1.9 % (0.0-7.0); Hematocrit 23.5 % (41.0-53.0); Hemoglobin 7.4 g/dL (13.5-17.5); Lymphocytes # (auto) 0.6 uL; Lymphocytes % (auto) 9.6 % (10.0-50.0); Mean Corpuscular Hemoglobin 27.8 pg (28.0-32.0); Mean Corpuscular Hgb Conc. 31.4 g/dL (32.0-36.0); Mean Corpuscular Volume 88.6 fL (80.0-100.0); Monocytes % (auto) 17.9 % (0.0-12.0); Neutrophils # (auto) 4.5 uL; Neutrophils % (auto) 69.9 % (37.0-80.0); Platelet Count (auto) 287 10^3/uL (140-450); Red Blood Cells 2.66 10^6/uL (4.5-5.90); Red Cell Distribution Width 18.9 % (11.8-14.3); White Blood Cell 6.4 10^3/uL (4.4-10.8)
[2017-04-15 05:43] LABS: BUN/Creatinine Ratio 5.6; Calcium 8.1 mg/dL (8.5-10.1); Magnesium 2.3 mg/dL (1.6-2.6); Phosphorus 4.8 mg/dL (2.5-4.90)
[2017-04-15] MEDS: InsuLIN REG 1unit/0.01ml Soln (100units/ml) SC SCH ×3 (07:00→17:33)
[2017-04-15] MEDS: ACCU-CHEK COMFORT CURVE STRIP VI SCH ×3 (07:07→17:33)
[2017-04-15] MEDS: CALCIUM ACETATE 667 MG CAP PO SCH ×3 (08:04→17:36)
[2017-04-15] MEDS: METOCLOPRAMIDE HCL 10 MG TAB PO PRN (08:04)
[2017-04-15] MEDS: ALLOPURINOL 100 MG TAB PO SCH (09:41)
[2017-04-15] MEDS: CLOPIDOGREL BISULFATE 75 MG TAB PO SCH (09:41)
[2017-04-15] MEDS: ASPirin 81 mg TAB PO SCH (09:41)
[2017-04-15] MEDS ORDERED: EPOETIN ALFA 10,000 UNIT/1 ML VIAL IV ONE (11:00)
[2017-04-15] MEDS ORDERED: SODIUM CHL 0.9% 1000 ML BAG XX ONE (11:00)
[2017-04-15] MEDS: GABAPENTIN 300 MG CAP PO SCH (17:37)
[2017-05-04] MEDS ORDERED: APIX2.5T PO (11:22)
[2017-06-13] MEDS ORDERED: ALLO100T PO (04:55)
[2017-06-13] MEDS ORDERED: ASPI81CH43 PO ×2 (04:58→05:07)
[2017-06-13] MEDS ORDERED: DOCU100T15 PO (04:59)
[2017-06-13] MEDS ORDERED: APIX2.5T PO (05:00)
[2017-06-13] MEDS ORDERED: CHOL20007 PO (05:03)
[2017-06-13] MEDS ORDERED: NITR0.4S29 SL (05:08)
[2017-06-13] MEDS ORDERED: MID10T PO (05:10)
== END 2017-04-15 20:35 | disposition home or self-care (01) | DRG 194 ==
LOC: ER 12:03 → TELE 12:04 → TELE-WESTW 04-15 01:25
PROVIDERS: ADMIT Internal Medicine; ATTEND Nurse Practitioner Acute Care
PROC: 5A1D70Z Performance of Urinary Filtration, Intermittent, Less than 6 Hours Per Day (ICD-10-PCS; 2017-04-13)
PROC: 0W9G3ZZ Drainage of Peritoneal Cavity, Percutaneous Approach (ICD-10-PCS; principal; 2017-04-14)
PROC: 5A1D70Z Performance of Urinary Filtration, Intermittent, Less than 6 Hours Per Day (ICD-10-PCS; 2017-04-15)
DX: I13.2 Hypertensive heart and chronic kidney disease with heart failure and with stage 5 chronic kidney disease, or end stage renal disease (principal); J96.10 Chronic respiratory failure, unspecified whether with hypoxia or hypercapnia; N18.6 End stage renal disease; R18.8 Other ascites; E11.22 Type 2 diabetes mellitus with diabetic chronic kidney disease; I27.20 Pulmonary hypertension, unspecified; I08.1 Rheumatic disorders of both mitral and tricuspid valves; I50.23 Acute on chronic systolic (congestive) heart failure; J44.9 Chronic obstructive pulmonary disease, unspecified; Z95.810 Presence of automatic (implantable) cardiac defibrillator; Z91.14 Patient's other noncompliance with medication regimen; E66.9 Obesity, unspecified; E78.5 Hyperlipidemia, unspecified; I25.10 Atherosclerotic heart disease of native coronary artery without angina pectoris; I25.5 Ischemic cardiomyopathy; I48.92 Unspecified atrial flutter; K76.0 Fatty (change of) liver, not elsewhere classified; M10.9 Gout, unspecified; Z82.3 Family history of stroke; Z99.2 Dependence on renal dialysis; Z82.49 Family history of ischemic heart disease and other diseases of the circulatory system; Z95.1 Presence of aortocoronary bypass graft; Z83.3 Family history of diabetes mellitus; Z79.899 Other long term (current) drug therapy; Z79.82 Long term (current) use of aspirin
CPT/HCPCS: 36415; 36600; 49083; 71046; 74176; 76700; 76942; 80048; 80053; 81001; 82805; 82962; 83605; 83735; 84100; 84484; 85025; 85610; 87040; 87081; 90935; 93005; 96374; J0885; J1642; J1815; J2405

== ENCOUNTER 2017-04-17 12:35 | Inpatient (IN) | payer MEDICARE, MEDICAID ==
[~2017-04-17] VITALS: Ht 167.6 cm; Wt 116.8 kg
[~2017-04-17 12:35] MED LIST changes: +AMIO100T3 PO; +CAR3125T PO; +CINA30TA2 PO; +DOCU100T15 PO; +ONDA8TAB6 PO; +PANT40TA2 PO
[2017-04-17 14:04] LABS: Hematocrit 24.9 % (41.0-53.0); Mean Corpuscular Volume 90.5 fL (80.0-100.0); Red Blood Cells 2.75 10^6/uL (4.5-5.90)
[2017-04-17 14:06] LABS: Hemoglobin 7.6 g/dL (13.5-17.5); Mean Corpuscular Hemoglobin 27.7 pg (28.0-32.0); Mean Corpuscular Hgb Conc. 30.6 g/dL (32.0-36.0); Platelet Count (auto) 249 10^3/uL (140-450); Red Cell Distribution Width 19.3 % (11.8-14.3); White Blood Cell 4.4 10^3/uL (4.4-10.8)
[2017-04-17 14:12] LABS: Band Neutrophils % (manual) 0; Basophils % (manual) 0 (0.0-2.0); Blast Cells 0; Metamyelocytes % 0; Myelocytes % 0; Promyelocytes % 0; Reactive Lymphocytes 0
[2017-04-17 14:15] LABS: Albumin 2.4 g/dL (3.4-5.0); BUN/Creatinine Ratio 4.1; Calcium 7.3 mg/dL (8.5-10.1); Magnesium 2.1 mg/dL (1.6-2.6); Potassium 3.4 mmol/L (3.5-5.1)
[2017-04-17 14:30] LABS: Eosinophils % (manual) 3 (0-7); Lymphocytes % (manual) 17 (10.0-50.0); Monocytes % (manual) 16 (0-12)
[2017-04-17 15:25] LABS: Bilirubin, Total 0.7 mg/dL (0.2-1.0)
[2017-04-17] MEDS ORDERED: NITROGLYCERIN 0.4 MG SL TAB SL PRN (17:00)
[2017-04-17] MEDS ORDERED: MORPHINE SULF INJ 2 MG/ML SYRINGE 1ML IV PRN (17:00)
[2017-04-17] MEDS ORDERED: ONDANSETRON HCL 4 MG/2 ML VIAL IV PRN (17:00)
[2017-04-17] MEDS ORDERED: MIDODRINE HCL 10 MG TAB PO SCH (17:00)
[2017-04-17] MEDS: SEVELAMER 800 MG TAB PO SCH (18:07)
[2017-04-17] MEDS: CALCIUM ACETATE 667 MG CAP PO SCH (18:07)
[2017-04-17 18:40] LABS: INR 1.17 (0.9-1.15); Prothrombin Time 12.7 sec (9.37-12.3)
[2017-04-17 18:41] LABS: Partial Thromboplastin Time 30.3 sec (22.64-33.71)
[2017-04-17 19:00] VITALS: BP 105/67
[2017-04-17 22:00] VITALS: BP 105/67
[2017-04-17] MEDS: CARVEDILOL 3.125 MG TAB PO SCH (22:00)
[2017-04-17] MEDS: GABAPENTIN 300 MG CAP PO SCH (22:23)
[2017-04-17] MEDS: ATORVASTATIN 20 MG TAB PO SCH (22:24)
[2017-04-17] MEDS: HYDROcodone-ACET 5/325MG TAB PO PRN (22:24)
[2017-04-17 23:43] VITALS: BP 97/64
[2017-04-18] VITALS (11 sets, daily range): BP systolic 89–143; BP diastolic 45–72
[2017-04-18] MEDS: HYDROcodone-ACET 5/325MG TAB PO PRN ×3 (02:29→16:54)
[2017-04-18] MEDS: GLIMEPIRIDE 2 MG TAB PO SCH (06:00)
[2017-04-18] MEDS: CALCIUM ACETATE 667 MG CAP PO SCH ×3 (08:12→17:49)
[2017-04-18] MEDS: SEVELAMER 800 MG TAB PO SCH ×3 (08:12→17:49)
[2017-04-18] MEDS: GABAPENTIN 300 MG CAP PO SCH ×2 (09:52→21:28)
[2017-04-18] MEDS: ASPirin-EC 81 mg tab PO SCH (09:52)
[2017-04-18] MEDS: PANTOPRAZOLE 40 MG TAB PO SCH (09:52)
[2017-04-18] MEDS: CLOPIDOGREL BISULFATE 75 MG TAB PO SCH (09:53)
[2017-04-18] MEDS: AMIODARONE HCL 200 MG TAB PO SCH (09:53)
[2017-04-18] MEDS: ALLOPURINOL 100 MG TAB PO SCH (09:53)
[2017-04-18] MEDS: CARVEDILOL 3.125 MG TAB PO SCH (09:54)
[2017-04-18] MEDS ORDERED: ERGOCALCIFEROL 50,000 UNIT(1.25MG) CAP PO SCH (10:00)
[2017-04-18] MEDS ORDERED: DIGOXIN (250MCG/ML) 2 ML AMPULE IV ONE (13:15)
[2017-04-18] MEDS: MIDODRINE HCL 10 MG TAB PO SCH ×2 (13:47→17:49)
[2017-04-18] MEDS: ATORVASTATIN 20 MG TAB PO SCH (21:28)
[2017-04-19 05:00] VITALS: BP 132/68
[2017-04-19] MEDS ORDERED: DEXTROSE 50% SYRINGE 50 ML IV ONE (06:31)
[2017-04-19] MEDS: GLIMEPIRIDE 2 MG TAB PO SCH (06:46)
[2017-04-19] MEDS: MIDODRINE HCL 10 MG TAB PO SCH ×3 (06:47→17:06)
[2017-04-19] MEDS ORDERED: D5W/SOD CHLO 0.9% 1,000 ML IV SCH (07:00)
[2017-04-19] MEDS: DEXTROSE (50%) 50ML SYRG IV PRN ×3 (07:14→23:37)
[2017-04-19] MEDS: CALCIUM ACETATE 667 MG CAP PO SCH ×3 (08:00→18:19)
[2017-04-19] MEDS: SEVELAMER 800 MG TAB PO SCH ×3 (08:00→18:19)
[2017-04-19 09:00] VITALS: BP 112/86
[2017-04-19] MEDS: CLOPIDOGREL BISULFATE 75 MG TAB PO SCH (10:09)
[2017-04-19] MEDS: GABAPENTIN 300 MG CAP PO SCH ×2 (10:09→22:08)
[2017-04-19] MEDS: ALLOPURINOL 100 MG TAB PO SCH (10:09)
[2017-04-19] MEDS: PANTOPRAZOLE 40 MG TAB PO SCH (10:09)
[2017-04-19] MEDS: ASPirin-EC 81 mg tab PO SCH (10:09)
[2017-04-19] MEDS: AMIODARONE HCL 200 MG TAB PO SCH (10:09)
[2017-04-19] MEDS: InsuLIN REG 1unit/0.01ml Soln (100units/ml) SC SCH ×3 (12:00→23:35)
[2017-04-19] MEDS: ACCU-CHEK COMFORT CURVE STRIP VI SCH ×3 (12:04→23:36)
[2017-04-19 13:00] VITALS: BP 92/68
[2017-04-19 17:00] VITALS: BP 91/69
[2017-04-19 17:03] LABS: Basophils # (auto) 0 uL; Basophils % (auto) 0.4 % (0.0-2.0); Eosinophils # (auto) 0.1 uL; Eosinophils % (auto) 1.2 % (0.0-7.0); Hematocrit 29.4 % (41.0-53.0); Hemoglobin 9.2 g/dL (13.5-17.5); Lymphocytes # (auto) 0.8 uL; Lymphocytes % (auto) 9.3 % (10.0-50.0); Mean Corpuscular Hemoglobin 27.9 pg (28.0-32.0); Mean Corpuscular Hgb Conc. 31.3 g/dL (32.0-36.0); Mean Corpuscular Volume 89.4 fL (80.0-100.0); Monocytes # (auto) 1.1 uL; Monocytes % (auto) 14.1 % (0.0-12.0); Neutrophils # (auto) 6.1 uL; Nucleated Red Blood Cells % 0.3 %; Platelet Count (auto) 282 10^3/uL (140-450); Red Blood Cells 3.28 10^6/uL (4.5-5.90); Red Cell Distribution Width 18.5 % (11.8-14.3); White Blood Cell 8.1 10^3/uL (4.4-10.8)
[2017-04-19] MEDS: HYDROcodone-ACET 5/325MG TAB PO PRN (17:04)
[2017-04-19 17:20] LABS: BUN/Creatinine Ratio 4.3; Calcium 7.2 mg/dL (8.5-10.1); Potassium 3.2 mmol/L (3.5-5.1)
[2017-04-19 22:00] VITALS: BP 120/78
[2017-04-19] MEDS: ATORVASTATIN 20 MG TAB PO SCH (22:07)
[2017-04-19] MEDS: TEMAZEPAM 15 MG CAP PO PRN (22:08)
[2017-04-19] MEDS ORDERED: DEXTROSE 10% 1,000 ML IV SCH (23:00)
[2017-04-20] VITALS (8 sets, daily range): BP systolic 109–155; BP diastolic 63–78
[2017-04-20] MEDS: ACCU-CHEK COMFORT CURVE STRIP VI SCH ×13 (02:21→23:00)
[2017-04-20] MEDS ORDERED: DEXTROSE (50%) 50ML SYRG IV ONE (02:30)
[2017-04-20 05:49] LABS: Basophils # (auto) 0 uL; Eosinophils # (auto) 0.2 uL; Nucleated Red Blood Cells % 0.2 %
[2017-04-20 05:52] LABS: Basophils % (auto) 0.2 % (0.0-2.0); Eosinophils % (auto) 1.9 % (0.0-7.0); Hematocrit 30.1 % (41.0-53.0); Hemoglobin 9.4 g/dL (13.5-17.5); Lymphocytes % (auto) 10.2 % (10.0-50.0); Mean Corpuscular Hemoglobin 28.4 pg (28.0-32.0); Mean Corpuscular Hgb Conc. 31.2 g/dL (32.0-36.0); Mean Corpuscular Volume 91.1 fL (80.0-100.0); Monocytes # (auto) 1.6 uL; Neutrophils % (auto) 71.7 % (37.0-80.0); Platelet Count (auto) 305 10^3/uL (140-450); Red Cell Distribution Width 18.7 % (11.8-14.3); White Blood Cell 9.8 10^3/uL (4.4-10.8)
[2017-04-20] MEDS: InsuLIN REG 1unit/0.01ml Soln (100units/ml) SC SCH (06:00)
[2017-04-20] MEDS: DEXTROSE (50%) 50ML SYRG IV PRN ×9 (06:24→19:48)
[2017-04-20] MEDS: MIDODRINE HCL 10 MG TAB PO SCH ×3 (06:26→17:00)
[2017-04-20 06:27] LABS: Calcium 7.4 mg/dL (8.5-10.1); Magnesium 2.4 mg/dL (1.6-2.6); Potassium 3.9 mmol/L (3.5-5.1)
[2017-04-20] MEDS ORDERED: GLUCAGON HYDROCHLORIDE (RDNA) 1 MG VIAL IV ONE (06:30)
[2017-04-20] MEDS: CALCIUM ACETATE 667 MG CAP PO SCH ×3 (08:00→17:47)
[2017-04-20] MEDS ORDERED: DEXTROSE 10% 1,000 ML IV SCH (08:15)
[2017-04-20] MEDS: SEVELAMER 800 MG TAB PO SCH ×3 (10:03→17:47)
[2017-04-20] MEDS: CLOPIDOGREL BISULFATE 75 MG TAB PO SCH (10:04)
[2017-04-20] MEDS: GABAPENTIN 300 MG CAP PO SCH ×2 (10:04→21:58)
[2017-04-20] MEDS: ALLOPURINOL 100 MG TAB PO SCH (10:04)
[2017-04-20] MEDS: PANTOPRAZOLE 40 MG TAB PO SCH (10:04)
[2017-04-20] MEDS: AMIODARONE HCL 200 MG TAB PO SCH (10:04)
[2017-04-20] MEDS: ASPirin-EC 81 mg tab PO SCH (10:04)
[2017-04-20] MEDS: DEXTROSE 10% 1,000 ML IV SCH (13:00)
[2017-04-20] MEDS ORDERED: VANCOMYCIN PER PHARMACY 0 MG IV SCH (17:00)
[2017-04-20] MEDS: PIPERACILLIN-TAZOB 2.25GM 50 ML IV SCH (19:00)
[2017-04-20] MEDS: IPRATROPIUM BROM 0.5 MG/2.5ML INH SOL NEB SCH (19:24)
[2017-04-20] MEDS: ALBUTEROL SULF 2.5 MG/0.5ML(0.5%) NEB SOLN NEB SCH (19:25)
[2017-04-20] MEDS ORDERED: VANCOMYCIN 1,250 MG in D5W 5% 250 ML IV ONE (20:00)
[2017-04-20] MEDS: ATORVASTATIN 20 MG TAB PO SCH (21:58)
[2017-04-20] MEDS: HYDROcodone-ACET 5/325MG TAB PO PRN (22:39)
[2017-04-21] VITALS (39 sets, daily range): BP systolic 68–165; BP diastolic 26–91
[2017-04-21] MEDS: ALBUTEROL SULF 2.5 MG/0.5ML(0.5%) NEB SOLN NEB SCH ×4 (00:19→19:25)
[2017-04-21] MEDS: IPRATROPIUM BROM 0.5 MG/2.5ML INH SOL NEB SCH ×4 (00:19→19:25)
[2017-04-21] MEDS: ACCU-CHEK COMFORT CURVE STRIP VI SCH ×15 (01:00→22:00)
[2017-04-21] MEDS: DEXTROSE (50%) 50ML SYRG IV PRN ×2 (01:14→04:20)
[2017-04-21] MEDS: DEXTROSE 10% 1,000 ML IV SCH ×2 (03:53→16:22)
[2017-04-21] MEDS: HYDROcodone-ACET 5/325MG TAB PO PRN (04:06)
[2017-04-21] MEDS: IBUPROFEN 600 MG TAB PO PRN (05:12)
[2017-04-21 05:48] LABS: Hematocrit 29.2 % (41.0-53.0); Hemoglobin 9.3 g/dL (13.5-17.5); Mean Corpuscular Hemoglobin 27.7 pg (28.0-32.0); Mean Corpuscular Hgb Conc. 31.9 g/dL (32.0-36.0); Platelet Count (auto) 260 10^3/uL (140-450); Red Blood Cells 3.35 10^6/uL (4.5-5.90); Red Cell Distribution Width 19.1 % (11.8-14.3); White Blood Cell 12.2 10^3/uL (4.4-10.8)
[2017-04-21 05:50] LABS: Band Neutrophils % (manual) 0; Basophils % (manual) 0 (0.0-2.0); Blast Cells 0; Metamyelocytes % 0; Myelocytes % 0; Promyelocytes % 0; Reactive Lymphocytes 0
[2017-04-21] MEDS: PIPERACILLIN-TAZOB 2.25GM 50 ML IV SCH ×2 (06:00→18:18)
[2017-04-21] MEDS: MIDODRINE HCL 10 MG TAB PO SCH ×4 (06:19→17:00)
[2017-04-21 06:55] LABS: BUN/Creatinine Ratio 4.6; Calcium 7.3 mg/dL (8.5-10.1)
[2017-04-21] MEDS ORDERED: EPOETIN ALFA 10,000 UNIT/1 ML VIAL IV ONE (07:00)
[2017-04-21] MEDS ORDERED: AMIODARONE HCL (50 MG/ ML) 3 ML VIAL IV ONE (07:57)
[2017-04-21 07:59] LABS: Eosinophils % (manual) 1 (0-7); Lymphocytes % (manual) 5 (10.0-50.0); Monocytes % (manual) 19 (0-12)
[2017-04-21] MEDS: CALCIUM ACETATE 667 MG CAP PO SCH ×3 (08:00→18:18)
[2017-04-21] MEDS: SEVELAMER 800 MG TAB PO SCH ×3 (08:00→18:18)
[2017-04-21] MEDS ORDERED: NOREPINEPHRINE 8 MG/250ML KIT 250 ML IV ONE (08:08)
[2017-04-21] MEDS ORDERED: AMIODARONE HCL 900 MG IV ONE (08:21)
[2017-04-21] MEDS: GABAPENTIN 300 MG CAP PO SCH ×2 (10:00→22:49)
[2017-04-21] MEDS ORDERED: AMIODARONE HCL 150 MG in D5W 5% 100 ML IV ONE (10:00)
[2017-04-21] MEDS ORDERED: DIGOXIN (250MCG/ML) 2 ML AMPULE IV ONE (10:00)
[2017-04-21] MEDS: ALLOPURINOL 100 MG TAB PO SCH (10:00)
[2017-04-21] MEDS: CLOPIDOGREL BISULFATE 75 MG TAB PO SCH (10:00)
[2017-04-21] MEDS: ASPirin-EC 81 mg tab PO SCH (10:00)
[2017-04-21] MEDS: PANTOPRAZOLE 40 MG TAB PO SCH (10:00)
[2017-04-21] MEDS ORDERED: AMIODARONE HCL 900 MG in DEXTROSE 500 ML IV SCH ×2 (10:02→16:02)
[2017-04-21] MEDS: METOPROLOL TARTRATE 1MG/1ML-5ML VIAL IV SCH ×4 (10:15→22:48)
[2017-04-21] MEDS: AMIODARONE HCL 200 MG TAB PO SCH (10:38)
[2017-04-21] MEDS ORDERED: VANCOMYCIN 1GM/250ML 250 ML IV ONE (13:00)
[2017-04-21] MEDS: PRO-STAT 64 30ML PO SCH (18:18)
[2017-04-21] MEDS: ATORVASTATIN 20 MG TAB PO SCH (22:49)
[2017-04-22] VITALS (10 sets, daily range): BP systolic 105–148; BP diastolic 56–97
[2017-04-22] MEDS: ALBUTEROL SULF 2.5 MG/0.5ML(0.5%) NEB SOLN NEB SCH ×3 (00:35→13:17)
[2017-04-22] MEDS: IPRATROPIUM BROM 0.5 MG/2.5ML INH SOL NEB SCH ×3 (00:35→13:17)
[2017-04-22] MEDS: ACCU-CHEK COMFORT CURVE STRIP VI SCH ×6 (02:00→22:08)
[2017-04-22] MEDS: METOPROLOL TARTRATE 1MG/1ML-5ML VIAL IV SCH ×7 (02:55→22:07)
[2017-04-22 04:35] LABS: Basophils # (auto) 0 uL; Basophils % (auto) 0.2 % (0.0-2.0); Eosinophils # (auto) 0.3 uL; Eosinophils % (auto) 3.2 % (0.0-7.0); Hemoglobin 9.1 g/dL (13.5-17.5); Lymphocytes # (auto) 0.7 uL; Mean Corpuscular Hemoglobin 27.9 pg (28.0-32.0); Mean Corpuscular Hgb Conc. 31.3 g/dL (32.0-36.0); Mean Corpuscular Volume 89.1 fL (80.0-100.0); Monocytes # (auto) 1.2 uL; Monocytes % (auto) 13.4 % (0.0-12.0); Neutrophils # (auto) 6.6 uL; Neutrophils % (auto) 75.2 % (37.0-80.0); Nucleated Red Blood Cells % 0.1 %; Platelet Count (auto) 226 10^3/uL (140-450); Red Blood Cells 3.26 10^6/uL (4.5-5.90); Red Cell Distribution Width 19.1 % (11.8-14.3); White Blood Cell 8.8 10^3/uL (4.4-10.8)
[2017-04-22 04:53] LABS: Alanine Aminotransferase < 6 U/L (16-61); Albumin 2.2 g/dL (3.4-5.0); Alkaline Phosphatase 82 U/L (45-117); Anion Gap 9 (5-15); Aspartate Aminotransferase 12 U/L (15-37); BUN/Creatinine Ratio 5.1; Bilirubin, Total 0.9 mg/dL (0.2-1.0); Blood Urea Nitrogen 26 mg/dL (7-18); Calcium 7.3 mg/dL (8.5-10.1); Carbon Dioxide 28 mmol/L (21-32); Chloride 96 mmol/L (98-107); GFR African American 15 mL/min; GFR Non-African American 13 mL/min; Glucose 124 mg/dL (74-106); Magnesium 2.4 mg/dL (1.6-2.6); Potassium 4.1 mmol/L (3.5-5.1); Sodium 133 mmol/L (136-145); Total Protein 6.5 g/dL (6.4-8.2)
[2017-04-22] MEDS: PIPERACILLIN-TAZOB 2.25GM 50 ML IV SCH (05:52)
[2017-04-22] MEDS: MIDODRINE HCL 10 MG TAB PO SCH ×3 (06:30→18:14)
[2017-04-22] MEDS: SEVELAMER 800 MG TAB PO SCH ×3 (08:36→18:00)
[2017-04-22] MEDS: CALCIUM ACETATE 667 MG CAP PO SCH ×3 (08:37→18:00)
[2017-04-22] MEDS: PRO-STAT 64 30ML PO SCH ×2 (08:37→18:00)
[2017-04-22] MEDS: DEXTROSE 10% 1,000 ML IV SCH (09:12)
[2017-04-22] MEDS: AMIODARONE HCL 200 MG TAB PO SCH (11:26)
[2017-04-22] MEDS: PANTOPRAZOLE 40 MG TAB PO SCH (11:26)
[2017-04-22] MEDS: CLOPIDOGREL BISULFATE 75 MG TAB PO SCH (11:26)
[2017-04-22] MEDS: ASPirin-EC 81 mg tab PO SCH (11:26)
[2017-04-22] MEDS: GABAPENTIN 300 MG CAP PO SCH ×2 (11:26→22:08)
[2017-04-22] MEDS: ALLOPURINOL 100 MG TAB PO SCH (11:27)
[2017-04-22] MEDS: HYDROcodone-ACET 5/325MG TAB PO PRN ×2 (11:28→18:15)
[2017-04-22] MEDS: guaiFENesin 200 MG/10 ML UD PO PRN ×3 (12:24→22:10)
[2017-04-22] MEDS: ATORVASTATIN 20 MG TAB PO SCH (22:04)
[2017-04-22] MEDS: TEMAZEPAM 15 MG CAP PO PRN (22:08)
[2017-04-23] MEDS: ALBUTEROL SULF 2.5 MG/0.5ML(0.5%) NEB SOLN NEB SCH ×4 (00:19→18:00)
[2017-04-23] MEDS: IPRATROPIUM BROM 0.5 MG/2.5ML INH SOL NEB SCH ×4 (00:19→18:00)
[2017-04-23] MEDS: ACCU-CHEK COMFORT CURVE STRIP VI SCH ×6 (02:00→22:03)
[2017-04-23] MEDS: METOPROLOL TARTRATE 1MG/1ML-5ML VIAL IV SCH ×6 (02:00→22:00)
[2017-04-23 05:00] VITALS: BP 99/70
[2017-04-23] MEDS: MIDODRINE HCL 10 MG TAB PO SCH ×3 (05:52→17:56)
[2017-04-23 06:22] LABS: Eosinophils # (auto) 0.1 uL; Eosinophils % (auto) 0.6 % (0.0-7.0); Neutrophils # (auto) 11.4 uL; White Blood Cell 14.3 10^3/uL (4.4-10.8)
[2017-04-23 06:25] LABS: Basophils # (auto) 0 uL; Basophils % (auto) 0.3 % (0.0-2.0); Hematocrit 26.8 % (41.0-53.0); Hemoglobin 8.4 g/dL (13.5-17.5); Lymphocytes % (auto) 6.7 % (10.0-50.0); Mean Corpuscular Hemoglobin 27.6 pg (28.0-32.0); Mean Corpuscular Hgb Conc. 31.2 g/dL (32.0-36.0); Mean Corpuscular Volume 88.4 fL (80.0-100.0); Monocytes # (auto) 1.8 uL; Monocytes % (auto) 12.5 % (0.0-12.0); Neutrophils % (auto) 79.9 % (37.0-80.0); Platelet Count (auto) 273 10^3/uL (140-450); Red Blood Cells 3.02 10^6/uL (4.5-5.90); Red Cell Distribution Width 18.3 % (11.8-14.3)
[2017-04-23 06:48] LABS: BUN/Creatinine Ratio 6.5; Calcium 7.5 mg/dL (8.5-10.1); Potassium 4.4 mmol/L (3.5-5.1)
[2017-04-23] MEDS: HYDROcodone-ACET 5/325MG TAB PO PRN ×3 (07:12→22:04)
[2017-04-23 07:15] VITALS: BP 123/65
[2017-04-23] MEDS: IBUPROFEN 600 MG TAB PO PRN (08:33)
[2017-04-23] MEDS: ALLOPURINOL 100 MG TAB PO SCH (09:35)
[2017-04-23] MEDS: ASPirin-EC 81 mg tab PO SCH (09:36)
[2017-04-23] MEDS: PANTOPRAZOLE 40 MG TAB PO SCH (09:36)
[2017-04-23] MEDS: AMIODARONE HCL 200 MG TAB PO SCH (09:36)
[2017-04-23] MEDS: CLOPIDOGREL BISULFATE 75 MG TAB PO SCH (09:36)
[2017-04-23] MEDS: GABAPENTIN 300 MG CAP PO SCH (09:36)
[2017-04-23] MEDS ORDERED: LEVOFLOXACIN 500 MG TAB PO ONE (10:00)
[2017-04-23] MEDS ORDERED: EPOETIN ALFA 10,000 UNIT/1 ML VIAL IV ONE (11:15)
[2017-04-23] MEDS: PRO-STAT 64 30ML PO SCH ×2 (11:48→18:01)
[2017-04-23] MEDS: SEVELAMER 800 MG TAB PO SCH ×3 (11:48→18:01)
[2017-04-23] MEDS: CALCIUM ACETATE 667 MG CAP PO SCH ×3 (11:48→18:00)
[2017-04-23] MEDS: ALBUMIN 25% 100 ML IV SCH ×2 (12:00→13:00)
[2017-04-23] MEDS: metroNIDAZOLE 500 MG TAB PO SCH ×2 (12:48→18:00)
[2017-04-23 13:00] VITALS: BP 153/73
[2017-04-23] MEDS: cefTRIAXone 1GM/10ml IVPUSH 10 ML IV SCH (16:59)
[2017-04-23 18:15] VITALS: BP 120/60
[2017-04-23] MEDS: ENOXAPARIN SOD 60 MG/0.6 ML SYRINGE SC SCH (22:03)
[2017-04-23] MEDS: ATORVASTATIN 20 MG TAB PO SCH (22:03)
[2017-04-24] VITALS (7 sets, daily range): BP systolic 90–147; BP diastolic 38–84
[2017-04-24] MEDS: guaiFENesin 200 MG/10 ML UD PO PRN (00:41)
[2017-04-24] MEDS: metroNIDAZOLE 500 MG TAB PO SCH ×4 (00:43→17:20)
[2017-04-24] MEDS: METOPROLOL TARTRATE 1MG/1ML-5ML VIAL IV SCH ×2 (02:00→06:00)
[2017-04-24] MEDS: ACCU-CHEK COMFORT CURVE STRIP VI SCH ×6 (02:00→22:05)
[2017-04-24] MEDS ORDERED: VANCOMYCIN PER PHARMACY 0 MG IV SCH (03:00)
[2017-04-24] MEDS ORDERED: SODIUM CHLORIDE 0.9% 1,000 ML IV ONE (03:00)
[2017-04-24] MEDS ORDERED: VANCOMYCIN 1GM/250ML 250 ML IV ONE (03:15)
[2017-04-24 04:10] LABS: Basophils # (auto) 0.1 uL; Basophils % (auto) 0.5 % (0.0-2.0); Eosinophils # (auto) 0 uL; Eosinophils % (auto) 0.3 % (0.0-7.0); Hematocrit 26.1 % (41.0-53.0); Hemoglobin 8.2 g/dL (13.5-17.5); Lymphocytes # (auto) 0.3 uL; Lymphocytes % (auto) 2.1 % (10.0-50.0); Mean Corpuscular Hemoglobin 27.4 pg (28.0-32.0); Mean Corpuscular Hgb Conc. 31.2 g/dL (32.0-36.0); Mean Corpuscular Volume 87.7 fL (80.0-100.0); Monocytes # (auto) 0.8 uL; Monocytes % (auto) 5.4 % (0.0-12.0); Neutrophils # (auto) 13.2 uL; Neutrophils % (auto) 91.7 % (37.0-80.0); Platelet Count (auto) 261 10^3/uL (140-450); Red Blood Cells 2.98 10^6/uL (4.5-5.90); Red Cell Distribution Width 18.7 % (11.8-14.3); White Blood Cell 14.3 10^3/uL (4.4-10.8)
[2017-04-24 04:36] LABS: Calcium 7.8 mg/dL (8.5-10.1); Potassium 4.9 mmol/L (3.5-5.1)
[2017-04-24 04:36] LABS: Lactic Acid w/Reflex 2.7 mmol/L (0.4-2.0)
[2017-04-24] MEDS: IPRATROPIUM BROM 0.5 MG/2.5ML INH SOL NEB SCH ×5 (05:45→19:10)
[2017-04-24] MEDS: ALBUTEROL SULF 2.5 MG/0.5ML(0.5%) NEB SOLN NEB SCH ×5 (05:45→19:10)
[2017-04-24] MEDS: MIDODRINE HCL 10 MG TAB PO SCH ×3 (06:30→17:19)
[2017-04-24] MEDS: HYDROcodone-ACET 5/325MG TAB PO PRN ×3 (07:18→17:15)
[2017-04-24] MEDS: CALCIUM ACETATE 667 MG CAP PO SCH ×3 (08:43→17:49)
[2017-04-24] MEDS: PRO-STAT 64 30ML PO SCH ×2 (08:43→17:49)
[2017-04-24] MEDS: SEVELAMER 800 MG TAB PO SCH ×3 (08:43→17:49)
[2017-04-24] MEDS ORDERED: LEVOFLOXACIN 250 MG TAB PO SCH (10:00)
[2017-04-24] MEDS: PANTOPRAZOLE 40 MG TAB PO SCH (11:35)
[2017-04-24] MEDS: ENOXAPARIN SOD 60 MG/0.6 ML SYRINGE SC SCH ×2 (11:35→22:04)
[2017-04-24] MEDS: ALLOPURINOL 100 MG TAB PO SCH (11:35)
[2017-04-24] MEDS: CLOPIDOGREL BISULFATE 75 MG TAB PO SCH (11:35)
[2017-04-24] MEDS: ASPirin-EC 81 mg tab PO SCH (11:36)
[2017-04-24] MEDS: AMIODARONE HCL 200 MG TAB PO SCH (11:38)
[2017-04-24] MEDS: cefTRIAXone 1GM/10ml IVPUSH 10 ML IV SCH (11:38)
[2017-04-24] MEDS: guaiFENesin-DM 100/10mg/5ml SYR PO PRN (13:08)
[2017-04-24] MEDS: ATORVASTATIN 20 MG TAB PO SCH (22:04)
[2017-04-25] VITALS (8 sets, daily range): BP systolic 74–126; BP diastolic 30–92
[2017-04-25] MEDS: metroNIDAZOLE 500 MG TAB PO SCH ×4 (00:16→19:03)
[2017-04-25] MEDS: IPRATROPIUM BROM 0.5 MG/2.5ML INH SOL NEB SCH ×5 (00:58→18:39)
[2017-04-25] MEDS: ALBUTEROL SULF 2.5 MG/0.5ML(0.5%) NEB SOLN NEB SCH ×5 (00:58→18:39)
[2017-04-25] MEDS: ACCU-CHEK COMFORT CURVE STRIP VI SCH ×6 (02:00→23:05)
[2017-04-25] MEDS: MIDODRINE HCL 10 MG TAB PO SCH ×3 (06:07→19:03)
[2017-04-25 06:27] LABS: BUN/Creatinine Ratio 6.9; Potassium 4.9 mmol/L (3.5-5.1)
[2017-04-25 06:43] LABS: Calcium 8.2 mg/dL (8.5-10.1)
[2017-04-25] MEDS: PRO-STAT 64 30ML PO SCH ×2 (08:00→19:04)
[2017-04-25] MEDS: CALCIUM ACETATE 667 MG CAP PO SCH ×3 (08:00→19:04)
[2017-04-25] MEDS: SEVELAMER 800 MG TAB PO SCH ×3 (08:00→19:04)
[2017-04-25] MEDS ORDERED: LORazepam 2MG/ML-1ML VIAL IV ONE (08:30)
[2017-04-25] MEDS: HYDROcodone-ACET 5/325MG TAB PO PRN (08:31)
[2017-04-25] MEDS: DEXTROSE (50%) 50ML SYRG IV PRN ×3 (08:50→12:24)
[2017-04-25 10:09] LABS: Eosinophils # (auto) 0 uL; Eosinophils % (auto) 0.1 % (0.0-7.0); Hemoglobin 8.5 g/dL (13.5-17.5)
[2017-04-25 10:11] LABS: Basophils # (auto) 0.1 uL; Basophils % (auto) 0.5 % (0.0-2.0); Lymphocytes # (auto) 0.4 uL; Lymphocytes % (auto) 2.6 % (10.0-50.0); Mean Corpuscular Hgb Conc. 30.3 g/dL (32.0-36.0); Monocytes # (auto) 0.5 uL; Neutrophils # (auto) 14.2 uL; Neutrophils % (auto) 93.8 % (37.0-80.0); Platelet Count (auto) 334 10^3/uL (140-450); Red Blood Cells 3.14 10^6/uL (4.5-5.90); Red Cell Distribution Width 19.1 % (11.8-14.3); White Blood Cell 15.1 10^3/uL (4.4-10.8)
[2017-04-25] MEDS ORDERED: SODIUM CHL 0.9% 1000 ML BAG XX ONE (10:30)
[2017-04-25] MEDS: SPIRONOLACTONE 25 MG TAB PO SCH (10:30)
[2017-04-25] MEDS ORDERED: ALBUMIN 25% 100 ML IV PRN (10:30)
[2017-04-25] MEDS: ALLOPURINOL 100 MG TAB PO SCH (11:48)
[2017-04-25] MEDS: PANTOPRAZOLE 40 MG TAB PO SCH (11:48)
[2017-04-25] MEDS: ASPirin-EC 81 mg tab PO SCH (11:48)
[2017-04-25] MEDS: CLOPIDOGREL BISULFATE 75 MG TAB PO SCH (11:48)
[2017-04-25] MEDS: cefTRIAXone 1GM/10ml IVPUSH 10 ML IV SCH (11:48)
[2017-04-25] MEDS: ENOXAPARIN SOD 60 MG/0.6 ML SYRINGE SC SCH ×2 (11:49→23:00)
[2017-04-25] MEDS: AMIODARONE HCL 200 MG TAB PO SCH (11:50)
[2017-04-25] MEDS ORDERED: diphenhdrAMINE HCL 25 MG CAP PO ONE (22:30)
[2017-04-25] MEDS: ATORVASTATIN 20 MG TAB PO SCH (23:00)
[2017-04-25] MEDS: guaiFENesin-DM 100/10mg/5ml SYR PO PRN (23:03)
[2017-04-25] MEDS: TEMAZEPAM 15 MG CAP PO PRN (23:03)
[2017-04-26] VITALS (21 sets, daily range): BP systolic 84–153; BP diastolic 30–88
[2017-04-26] MEDS: IPRATROPIUM BROM 0.5 MG/2.5ML INH SOL NEB SCH ×4 (00:49→18:00)
[2017-04-26] MEDS: ALBUTEROL SULF 2.5 MG/0.5ML(0.5%) NEB SOLN NEB SCH ×4 (00:49→18:00)
[2017-04-26] MEDS: metroNIDAZOLE 500 MG TAB PO SCH ×4 (01:37→17:59)
[2017-04-26] MEDS: ACCU-CHEK COMFORT CURVE STRIP VI SCH ×9 (01:45→22:00)
[2017-04-26] MEDS: MIDODRINE HCL 10 MG TAB PO SCH ×3 (06:30→17:00)
[2017-04-26 07:48] LABS: Hemoglobin 8.5 g/dL (13.5-17.5); Mean Corpuscular Hgb Conc. 30.7 g/dL (32.0-36.0)
[2017-04-26 07:51] LABS: Hematocrit 27.6 % (41.0-53.0); Mean Corpuscular Hemoglobin 27.4 pg (28.0-32.0); Mean Corpuscular Volume 89.3 fL (80.0-100.0); Platelet Count (auto) 308 10^3/uL (140-450); Red Blood Cells 3.09 10^6/uL (4.5-5.90)
[2017-04-26] MEDS: SEVELAMER 800 MG TAB PO SCH ×3 (07:51→18:00)
[2017-04-26] MEDS: CALCIUM ACETATE 667 MG CAP PO SCH ×3 (07:51→17:59)
[2017-04-26] MEDS: PRO-STAT 64 30ML PO SCH ×2 (07:52→17:59)
[2017-04-26 07:53] LABS: White Blood Cell 31.5 10^3/uL (4.4-10.8)
[2017-04-26 07:54] LABS: Band Neutrophils % (manual) 0; Basophils % (manual) 0 (0.0-2.0); Blast Cells 0; Eosinophils % (manual) 0 (0-7); Metamyelocytes % 0; Myelocytes % 0; Promyelocytes % 0; Reactive Lymphocytes 0
[2017-04-26 08:05] LABS: Albumin 2.4 g/dL (3.4-5.0); BUN/Creatinine Ratio 7.5; Calcium 8.8 mg/dL (8.5-10.1); Potassium 5.1 mmol/L (3.5-5.1)
[2017-04-26 08:08] LABS: Bilirubin, Total 0.7 mg/dL (0.2-1.0); Total Protein 6.9 g/dL (6.4-8.2)
[2017-04-26 08:21] LABS: Lymphocytes % (manual) 5 (10.0-50.0); Monocytes % (manual) 5 (0-12)
[2017-04-26] MEDS: PANTOPRAZOLE 40 MG TAB PO SCH (09:50)
[2017-04-26] MEDS: CLOPIDOGREL BISULFATE 75 MG TAB PO SCH (09:50)
[2017-04-26] MEDS: SPIRONOLACTONE 25 MG TAB PO SCH (09:50)
[2017-04-26] MEDS: ASPirin-EC 81 mg tab PO SCH (09:50)
[2017-04-26] MEDS: AMIODARONE HCL 200 MG TAB PO SCH (09:51)
[2017-04-26] MEDS: ENOXAPARIN SOD 60 MG/0.6 ML SYRINGE SC SCH ×2 (09:51→22:00)
[2017-04-26] MEDS: ALLOPURINOL 100 MG TAB PO SCH (09:51)
[2017-04-26] MEDS: cefTRIAXone 1GM/10ml IVPUSH 10 ML IV SCH (10:10)
[2017-04-26] MEDS ORDERED: EPOETIN ALFA 10,000 UNIT/1 ML VIAL IV ONE (10:30)
[2017-04-26] MEDS: DEXTROSE 10% 1,000 ML IV SCH (11:24)
[2017-04-26 11:44] LABS: Hematocrit 31.8 % (41.0-53.0); Hemoglobin 8.9 g/dL (13.5-17.5); Mean Corpuscular Hemoglobin 26.5 pg (28.0-32.0); Mean Corpuscular Hgb Conc. 27.9 g/dL (32.0-36.0); Mean Corpuscular Volume 95.3 fL (80.0-100.0); Platelet Count (auto) 338 10^3/uL (140-450); Red Blood Cells 3.34 10^6/uL (4.5-5.90)
[2017-04-26 11:50] LABS: White Blood Cell 32.8 10^3/uL (4.4-10.8)
[2017-04-26 11:51] LABS: Band Neutrophils % (manual) 0; Basophils % (manual) 0 (0.0-2.0); Blast Cells 0; Eosinophils % (manual) 0 (0-7); Metamyelocytes % 0; Myelocytes % 0; Promyelocytes % 0; Reactive Lymphocytes 0
[2017-04-26] MEDS ORDERED: METOCLOPRAMIDE HCL 5MG/ml INJ 2ml VIAL IV PRN (12:00)
[2017-04-26] MEDS ORDERED: TEMAZEPAM 15 MG CAP PO PRN (12:15)
[2017-04-26 12:18] LABS: Lactic Acid w/Reflex 2.7 mmol/L (0.4-2.0)
[2017-04-26] MEDS: PROMETHAZINE HCL 25 MG/ML 1ML IV PRN (12:23)
[2017-04-26] MEDS ORDERED: FLUCONAZOLE 200MG/100ML 100 ML IV ONE (12:30)
[2017-04-26] MEDS ORDERED: PIPERACILLIN-TAZOB 2.25GM 50 ML IV ONE (12:30)
[2017-04-26 13:29] LABS: Lymphocytes % (manual) 2 (10.0-50.0); Monocytes % (manual) 4 (0-12)
[2017-04-26 13:53] LABS: INR 1.58 (0.9-1.15); Prothrombin Time 17.3 sec (9.37-12.3)
[2017-04-26] MEDS ORDERED: PIPERACILLIN-TAZOB 0.75 GM in D5W 5% 50 ML IV SCH (16:00)
[2017-04-26] MEDS ORDERED: VANCOMYCIN 1GM/250ML 250 ML IV ONE (16:00)
[2017-04-26] MEDS: HYDROcodone-ACET 5/325MG TAB PO PRN (20:53)
[2017-04-26] MEDS: ATORVASTATIN 20 MG TAB PO SCH (22:00)
[2017-04-26] MEDS: PIPERACILLIN-TAZOB 2.25GM 50 ML IV SCH (22:00)
[2017-04-27] VITALS (17 sets, daily range): BP systolic 83–125; BP diastolic 25–81
[2017-04-27] MEDS: ALBUTEROL SULF 2.5 MG/0.5ML(0.5%) NEB SOLN NEB SCH ×4 (00:18→18:39)
[2017-04-27] MEDS: IPRATROPIUM BROM 0.5 MG/2.5ML INH SOL NEB SCH ×4 (00:18→18:40)
[2017-04-27] MEDS: ACCU-CHEK COMFORT CURVE STRIP VI SCH ×12 (02:13→22:13)
[2017-04-27] MEDS: HYDROcodone-ACET 5/325MG TAB PO PRN (03:03)
[2017-04-27 03:51] LABS: Hemoglobin 8.3 g/dL (13.5-17.5); Lymphocytes # (auto) 0.8 uL; Lymphocytes % (auto) 3.4 % (10.0-50.0); Mean Corpuscular Hgb Conc. 30.2 g/dL (32.0-36.0); Nucleated Red Blood Cells % 0.1 %; White Blood Cell 22.7 10^3/uL (4.4-10.8)
[2017-04-27 03:54] LABS: Basophils # (auto) 0.3 uL; Basophils % (auto) 1.5 % (0.0-2.0); Eosinophils # (auto) 0.2 uL; Eosinophils % (auto) 0.9 % (0.0-7.0); Hematocrit 27.3 % (41.0-53.0); Mean Corpuscular Hemoglobin 27.2 pg (28.0-32.0); Mean Corpuscular Volume 89.9 fL (80.0-100.0); Monocytes # (auto) 2.4 uL; Monocytes % (auto) 10.6 % (0.0-12.0); Neutrophils % (auto) 83.6 % (37.0-80.0); Platelet Count (auto) 328 10^3/uL (140-450); Red Blood Cells 3.04 10^6/uL (4.5-5.90); Red Cell Distribution Width 19.6 % (11.8-14.3)
[2017-04-27 04:08] LABS: Albumin 2.4 g/dL (3.4-5.0); BUN/Creatinine Ratio 7.3; Calcium 8.7 mg/dL (8.5-10.1); Magnesium 2.4 mg/dL (1.6-2.6); Potassium 4.6 mmol/L (3.5-5.1)
[2017-04-27 04:29] LABS: Bilirubin, Total 0.6 mg/dL (0.2-1.0); Total Protein 6.6 g/dL (6.4-8.2)
[2017-04-27] MEDS: metroNIDAZOLE 500 MG TAB PO SCH ×3 (06:00→12:16)
[2017-04-27] MEDS: MIDODRINE HCL 10 MG TAB PO SCH ×3 (06:30→17:36)
[2017-04-27] MEDS: CALCIUM ACETATE 667 MG CAP PO SCH ×3 (08:05→17:35)
[2017-04-27] MEDS: SEVELAMER 800 MG TAB PO SCH ×3 (08:05→17:35)
[2017-04-27] MEDS: PRO-STAT 64 30ML PO SCH ×2 (08:06→17:36)
[2017-04-27] MEDS: PANTOPRAZOLE 40 MG TAB PO SCH (09:28)
[2017-04-27] MEDS: ASPirin-EC 81 mg tab PO SCH (09:28)
[2017-04-27] MEDS: CLOPIDOGREL BISULFATE 75 MG TAB PO SCH (09:28)
[2017-04-27] MEDS: ALLOPURINOL 100 MG TAB PO SCH (09:28)
[2017-04-27] MEDS: FLUCONAZOLE 200MG/100ML 100 ML IV SCH (09:33)
[2017-04-27] MEDS: AMIODARONE HCL 200 MG TAB PO SCH (09:34)
[2017-04-27] MEDS: ENOXAPARIN SOD 60 MG/0.6 ML SYRINGE SC SCH ×2 (09:34→20:52)
[2017-04-27] MEDS: SPIRONOLACTONE 25 MG TAB PO SCH (10:00)
[2017-04-27] MEDS ORDERED: SODIUM CHL 0.9% 1000 ML BAG XX ONE (11:00)
[2017-04-27] MEDS: PIPERACILLIN-TAZOB 2.25GM 50 ML IV SCH ×2 (11:12→20:52)
[2017-04-27] MEDS: DEXTROSE 10% 1,000 ML IV SCH (12:16)
[2017-04-27] MEDS ORDERED: ERGO1CAP23 PO (15:13)
[2017-04-27] MEDS: guaiFENesin-DM 100/10mg/5ml SYR PO PRN (20:50)
[2017-04-27] MEDS: ATORVASTATIN 20 MG TAB PO SCH (20:52)
[2017-04-28] VITALS (7 sets, daily range): BP systolic 102–129; BP diastolic 25–98
[2017-04-28] MEDS: ACCU-CHEK COMFORT CURVE STRIP VI SCH ×9 (00:14→23:57)
[2017-04-28] MEDS: IPRATROPIUM BROM 0.5 MG/2.5ML INH SOL NEB SCH ×4 (00:29→18:58)
[2017-04-28] MEDS: ALBUTEROL SULF 2.5 MG/0.5ML(0.5%) NEB SOLN NEB SCH ×4 (00:30→18:58)
[2017-04-28] MEDS: guaiFENesin-DM 100/10mg/5ml SYR PO PRN ×3 (01:00→18:34)
[2017-04-28 06:07] LABS: INR 1.58 (0.9-1.15); Prothrombin Time 17.3 sec (9.37-12.3)
[2017-04-28 06:09] LABS: Basophils # (auto) 0 uL; Eosinophils # (auto) 0.1 uL; Eosinophils % (auto) 0.4 % (0.0-7.0); Hemoglobin 7.9 g/dL (13.5-17.5); Neutrophils # (auto) 14.4 uL; White Blood Cell 17.9 10^3/uL (4.4-10.8)
[2017-04-28 06:10] LABS: Basophils % (auto) 0.1 % (0.0-2.0); Hematocrit 25.6 % (41.0-53.0); Lymphocytes % (auto) 5.4 % (10.0-50.0); Mean Corpuscular Hemoglobin 27.5 pg (28.0-32.0); Mean Corpuscular Hgb Conc. 30.9 g/dL (32.0-36.0); Monocytes # (auto) 2.5 uL; Monocytes % (auto) 13.9 % (0.0-12.0); Neutrophils % (auto) 80.2 % (37.0-80.0); Platelet Count (auto) 335 10^3/uL (140-450); Red Blood Cells 2.88 10^6/uL (4.5-5.90); Red Cell Distribution Width 19.2 % (11.8-14.3)
[2017-04-28] MEDS: MIDODRINE HCL 10 MG TAB PO SCH ×3 (06:18→17:00)
[2017-04-28 06:41] LABS: Albumin 2.3 g/dL (3.4-5.0); Bilirubin, Direct 0.5 mg/dL (0-0.2); Bilirubin, Total 0.7 mg/dL (0.2-1.0); Total Protein 6.6 g/dL (6.4-8.2)
[2017-04-28 06:46] LABS: BUN/Creatinine Ratio 7.4; Calcium 8.4 mg/dL (8.5-10.1); Potassium 5.2 mmol/L (3.5-5.1)
[2017-04-28] MEDS: PRO-STAT 64 30ML PO SCH ×2 (08:00→18:00)
[2017-04-28] MEDS: CALCIUM ACETATE 667 MG CAP PO SCH ×3 (08:43→18:33)
[2017-04-28] MEDS: SEVELAMER 800 MG TAB PO SCH ×3 (08:44→18:33)
[2017-04-28] MEDS: HYDROcodone-ACET 5/325MG TAB PO PRN ×2 (08:47→23:35)
[2017-04-28] MEDS: SPIRONOLACTONE 25 MG TAB PO SCH (10:00)
[2017-04-28] MEDS: PIPERACILLIN-TAZOB 2.25GM 50 ML IV SCH ×2 (10:00→22:38)
[2017-04-28] MEDS ORDERED: EPOETIN ALFA 10,000 UNIT/1 ML VIAL IV ONE (11:00)
[2017-04-28] MEDS ORDERED: VANCOMYCIN 1GM/250ML 250 ML IV ONE (14:15)
[2017-04-28] MEDS: FLUCONAZOLE 200MG/100ML 100 ML IV SCH (15:50)
[2017-04-28] MEDS: AMIODARONE HCL 200 MG TAB PO SCH (15:51)
[2017-04-28] MEDS: CLOPIDOGREL BISULFATE 75 MG TAB PO SCH (15:51)
[2017-04-28] MEDS: ASPirin-EC 81 mg tab PO SCH (15:51)
[2017-04-28] MEDS: ENOXAPARIN SOD 60 MG/0.6 ML SYRINGE SC SCH ×2 (15:51→22:00)
[2017-04-28] MEDS: PANTOPRAZOLE 40 MG TAB PO SCH (15:51)
[2017-04-28] MEDS: DEXTROSE 10% 1,000 ML IV SCH (15:52)
[2017-04-28] MEDS: ALLOPURINOL 100 MG TAB PO SCH (15:52)
[2017-04-28] MEDS: ERGOCALCIFEROL 50,000 UNIT(1.25MG) CAP PO SCH (15:53)
[2017-04-28] MEDS ORDERED: PHYTONADIONE ORAL Susp 10 mg/10ml PO ONE (19:00)
[2017-04-28] MEDS: ATORVASTATIN 20 MG TAB PO SCH (22:20)
[2017-04-29] VITALS (23 sets, daily range): BP systolic 86–133; BP diastolic 33–78
[2017-04-29] MEDS: IPRATROPIUM BROM 0.5 MG/2.5ML INH SOL NEB SCH ×4 (00:12→18:45)
[2017-04-29] MEDS: ALBUTEROL SULF 2.5 MG/0.5ML(0.5%) NEB SOLN NEB SCH ×4 (00:12→18:45)
[2017-04-29] MEDS: guaiFENesin-DM 100/10mg/5ml SYR PO PRN ×2 (00:33→23:29)
[2017-04-29] MEDS: ACCU-CHEK COMFORT CURVE STRIP VI SCH ×6 (03:07→22:02)
[2017-04-29] MEDS: MIDODRINE HCL 10 MG TAB PO SCH ×3 (06:30→17:19)
[2017-04-29 06:47] LABS: Mean Corpuscular Hemoglobin 27.4 pg (28.0-32.0)
[2017-04-29 06:50] LABS: Hematocrit 26.7 % (41.0-53.0); Hemoglobin 8.2 g/dL (13.5-17.5); Mean Corpuscular Hgb Conc. 30.7 g/dL (32.0-36.0); Mean Corpuscular Volume 89.2 fL (80.0-100.0); Platelet Count (auto) 290 10^3/uL (140-450); Red Cell Distribution Width 19.1 % (11.8-14.3); White Blood Cell 16.1 10^3/uL (4.4-10.8)
[2017-04-29 07:03] LABS: Band Neutrophils % (manual) 0
[2017-04-29 07:04] LABS: Basophils % (manual) 0 (0.0-2.0); Blast Cells 0; Eosinophils % (manual) 0 (0-7); INR 1.46 (0.9-1.15); Partial Thromboplastin Time 39.4 sec (22.64-33.71); Promyelocytes % 0; Reactive Lymphocytes 0
[2017-04-29 07:19] LABS: BUN/Creatinine Ratio 6.7; Calcium 8.6 mg/dL (8.5-10.1); Potassium 4.3 mmol/L (3.5-5.1)
[2017-04-29] MEDS: CALCIUM ACETATE 667 MG CAP PO SCH ×3 (08:00→17:19)
[2017-04-29] MEDS: SEVELAMER 800 MG TAB PO SCH ×3 (08:00→17:19)
[2017-04-29] MEDS: PRO-STAT 64 30ML PO SCH ×2 (08:00→17:19)
[2017-04-29 08:27] LABS: Lymphocytes % (manual) 6 (10.0-50.0)
[2017-04-29 08:28] LABS: Metamyelocytes % 1; Monocytes % (manual) 14 (0-12); Myelocytes % 1
[2017-04-29] MEDS: ENOXAPARIN SOD 60 MG/0.6 ML SYRINGE SC SCH ×2 (10:00→22:02)
[2017-04-29] MEDS: SPIRONOLACTONE 25 MG TAB PO SCH (10:00)
[2017-04-29] MEDS: CLOPIDOGREL BISULFATE 75 MG TAB PO SCH (10:00)
[2017-04-29] MEDS: ALLOPURINOL 100 MG TAB PO SCH (10:00)
[2017-04-29] MEDS: PANTOPRAZOLE 40 MG TAB PO SCH (10:00)
[2017-04-29] MEDS: FLUCONAZOLE 200MG/100ML 100 ML IV SCH (10:37)
[2017-04-29] MEDS: AMIODARONE HCL 200 MG TAB PO SCH (10:38)
[2017-04-29] MEDS: PIPERACILLIN-TAZOB 2.25GM 50 ML IV SCH ×2 (10:38→22:01)
[2017-04-29] MEDS: ASPirin-EC 81 mg tab PO SCH (10:38)
[2017-04-29] MEDS: DEXTROSE 10% 1,000 ML IV SCH (11:00)
[2017-04-29] MEDS: ATORVASTATIN 20 MG TAB PO SCH (22:02)
[2017-04-30] VITALS (7 sets, daily range): BP systolic 119–132; BP diastolic 22–62
[2017-04-30] MEDS: ACCU-CHEK COMFORT CURVE STRIP VI SCH ×6 (02:11→21:44)
[2017-04-30] MEDS: guaiFENesin-DM 100/10mg/5ml SYR PO PRN (03:41)
[2017-04-30 05:38] LABS: Basophils # (auto) 0.1 uL; Eosinophils # (auto) 0.2 uL; Eosinophils % (auto) 1.3 % (0.0-7.0); Hemoglobin 8.4 g/dL (13.5-17.5); Nucleated Red Blood Cells % 0.1 %; White Blood Cell 15.1 10^3/uL (4.4-10.8)
[2017-04-30 05:40] LABS: Basophils % (auto) 0.7 % (0.0-2.0); Hematocrit 27.1 % (41.0-53.0); Lymphocytes % (auto) 6.7 % (10.0-50.0); Mean Corpuscular Hemoglobin 27.9 pg (28.0-32.0); Mean Corpuscular Hgb Conc. 31.1 g/dL (32.0-36.0); Mean Corpuscular Volume 89.8 fL (80.0-100.0); Monocytes # (auto) 2.5 uL; Monocytes % (auto) 16.7 % (0.0-12.0); Neutrophils # (auto) 11.3 uL; Neutrophils % (auto) 74.6 % (37.0-80.0); Platelet Count (auto) 311 10^3/uL (140-450); Red Blood Cells 3.01 10^6/uL (4.5-5.90); Red Cell Distribution Width 19.6 % (11.8-14.3)
[2017-04-30 05:56] LABS: INR 1.41 (0.9-1.15); Prothrombin Time 15.4 sec (9.37-12.3)
[2017-04-30 06:22] LABS: BUN/Creatinine Ratio 7.1; Calcium 9.3 mg/dL (8.5-10.1)
[2017-04-30 06:45] LABS: Potassium 4.8 mmol/L (3.5-5.1)
[2017-04-30] MEDS: IPRATROPIUM BROM 0.5 MG/2.5ML INH SOL NEB SCH ×4 (06:47→18:52)
[2017-04-30] MEDS: ALBUTEROL SULF 2.5 MG/0.5ML(0.5%) NEB SOLN NEB SCH ×4 (06:47→18:51)
[2017-04-30] MEDS: MIDODRINE HCL 10 MG TAB PO SCH ×3 (06:49→18:22)
[2017-04-30] MEDS: PRO-STAT 64 30ML PO SCH ×2 (08:00→18:00)
[2017-04-30] MEDS: CALCIUM ACETATE 667 MG CAP PO SCH ×3 (08:23→18:22)
[2017-04-30] MEDS: SEVELAMER 800 MG TAB PO SCH ×3 (08:24→18:22)
[2017-04-30] MEDS: SPIRONOLACTONE 25 MG TAB PO SCH (10:00)
[2017-04-30] MEDS: ENOXAPARIN SOD 60 MG/0.6 ML SYRINGE SC SCH ×2 (10:00→21:44)
[2017-04-30] MEDS ORDERED: ONDANSETRON HCL 4 MG/2 ML VIAL IV PRN (11:15)
[2017-04-30] MEDS: PIPERACILLIN-TAZOB 2.25GM 50 ML IV SCH ×2 (11:54→21:43)
[2017-04-30] MEDS ORDERED: EPOETIN ALFA 10,000 UNIT/1 ML VIAL IV ONE (12:00)
[2017-04-30] MEDS ORDERED: SODIUM CHL 0.9% 1000 ML BAG XX ONE (12:00)
[2017-04-30] MEDS ORDERED: VANCOMYCIN 1GM/250ML 250 ML IV ONE (16:00)
[2017-04-30] MEDS: HYDROcodone-ACET 5/325MG TAB PO PRN (16:06)
[2017-04-30] MEDS: FLUCONAZOLE 200MG/100ML 100 ML IV SCH (16:06)
[2017-04-30] MEDS: ATORVASTATIN 20 MG TAB PO SCH (21:43)
[2017-05-01] VITALS (7 sets, daily range): BP systolic 90–132; BP diastolic 28–88
[2017-05-01] MEDS: guaiFENesin-DM 100/10mg/5ml SYR PO PRN (00:14)
[2017-05-01] MEDS: ALBUTEROL SULF 2.5 MG/0.5ML(0.5%) NEB SOLN NEB SCH ×4 (00:51→18:42)
[2017-05-01] MEDS: IPRATROPIUM BROM 0.5 MG/2.5ML INH SOL NEB SCH ×4 (00:51→18:42)
[2017-05-01 05:49] LABS: Eosinophils # (auto) 0.1 uL; Lymphocytes # (auto) 1.1 uL
[2017-05-01 05:52] LABS: Basophils # (auto) 0.1 uL; Basophils % (auto) 0.5 % (0.0-2.0); Eosinophils % (auto) 0.6 % (0.0-7.0); Hematocrit 26.3 % (41.0-53.0); Mean Corpuscular Hemoglobin 27.1 pg (28.0-32.0); Mean Corpuscular Hgb Conc. 30.3 g/dL (32.0-36.0); Mean Corpuscular Volume 89.5 fL (80.0-100.0); Monocytes # (auto) 1.9 uL; Monocytes % (auto) 14.6 % (0.0-12.0); Neutrophils % (auto) 76.3 % (37.0-80.0); Nucleated Red Blood Cells % 0.1 %; Platelet Count (auto) 293 10^3/uL (140-450); Red Blood Cells 2.94 10^6/uL (4.5-5.90); Red Cell Distribution Width 19.4 % (11.8-14.3); White Blood Cell 13.1 10^3/uL (4.4-10.8)
[2017-05-01 06:08] LABS: Albumin 2.2 g/dL (3.4-5.0); BUN/Creatinine Ratio 5.8; Bilirubin, Total 0.8 mg/dL (0.2-1.0); Calcium 8.1 mg/dL (8.5-10.1); Potassium 4.6 mmol/L (3.5-5.1)
[2017-05-01] MEDS: MIDODRINE HCL 10 MG TAB PO SCH ×4 (06:30→17:28)
[2017-05-01] MEDS: PRO-STAT 64 30ML PO SCH ×2 (08:00→17:04)
[2017-05-01] MEDS: ACCU-CHEK COMFORT CURVE STRIP VI SCH ×7 (08:00→22:45)
[2017-05-01] MEDS: CALCIUM ACETATE 667 MG CAP PO SCH ×3 (08:54→17:29)
[2017-05-01] MEDS: FLUCONAZOLE 200MG/100ML 100 ML IV SCH (08:55)
[2017-05-01] MEDS: SEVELAMER 800 MG TAB PO SCH ×3 (08:55→17:29)
[2017-05-01] MEDS: SPIRONOLACTONE 25 MG TAB PO SCH (10:00)
[2017-05-01] MEDS: ERGOCALCIFEROL 50,000 UNIT(1.25MG) CAP PO SCH (11:58)
[2017-05-01] MEDS: ALLOPURINOL 100 MG TAB PO SCH (11:59)
[2017-05-01] MEDS: ENOXAPARIN SOD 60 MG/0.6 ML SYRINGE SC SCH ×2 (11:59→22:50)
[2017-05-01] MEDS: ASPirin-EC 81 mg tab PO SCH (12:00)
[2017-05-01] MEDS: PANTOPRAZOLE 40 MG TAB PO SCH (12:00)
[2017-05-01] MEDS: CLOPIDOGREL BISULFATE 75 MG TAB PO SCH (12:00)
[2017-05-01] MEDS: AMIODARONE HCL 200 MG TAB PO SCH (12:00)
[2017-05-01] MEDS: PIPERACILLIN-TAZOB 2.25GM 50 ML IV SCH ×2 (12:02→22:50)
[2017-05-01] MEDS: PROMETHAZINE HCL 25 MG/ML 1ML IV PRN (16:08)
[2017-05-01] MEDS: ATORVASTATIN 20 MG TAB PO SCH (22:00)
[2017-05-02] MEDS: IPRATROPIUM BROM 0.5 MG/2.5ML INH SOL NEB SCH ×4 (00:38→18:47)
[2017-05-02] MEDS: ALBUTEROL SULF 2.5 MG/0.5ML(0.5%) NEB SOLN NEB SCH ×4 (00:38→18:46)
[2017-05-02] MEDS: ACCU-CHEK COMFORT CURVE STRIP VI SCH ×6 (02:16→21:43)
[2017-05-02 03:50] VITALS: BP 136/93
[2017-05-02 05:46] LABS: Basophils # (auto) 0.1 uL; Lymphocytes % (auto) 6.3 % (10.0-50.0); Monocytes # (auto) 1.7 uL; Neutrophils # (auto) 12.7 uL; White Blood Cell 15.5 10^3/uL (4.4-10.8)
[2017-05-02 05:49] LABS: Basophils % (auto) 0.3 % (0.0-2.0); Eosinophils # (auto) 0.1 uL; Eosinophils % (auto) 0.4 % (0.0-7.0); Hematocrit 26.8 % (41.0-53.0); Hemoglobin 8.3 g/dL (13.5-17.5); Mean Corpuscular Hemoglobin 27.5 pg (28.0-32.0); Mean Corpuscular Volume 88.8 fL (80.0-100.0); Monocytes % (auto) 11.3 % (0.0-12.0); Neutrophils % (auto) 81.7 % (37.0-80.0); Platelet Count (auto) 318 10^3/uL (140-450); Red Blood Cells 3.02 10^6/uL (4.5-5.90); Red Cell Distribution Width 19.6 % (11.8-14.3)
[2017-05-02 05:52] LABS: Calcium 8.6 mg/dL (8.5-10.1); Potassium 4.9 mmol/L (3.5-5.1)
[2017-05-02] MEDS: MIDODRINE HCL 10 MG TAB PO SCH ×3 (06:16→17:10)
[2017-05-02 08:00] VITALS: BP 128/42
[2017-05-02] MEDS: PRO-STAT 64 30ML PO SCH ×2 (08:00→17:11)
[2017-05-02] MEDS: SEVELAMER 800 MG TAB PO SCH ×3 (08:03→17:11)
[2017-05-02] MEDS: CALCIUM ACETATE 667 MG CAP PO SCH ×3 (08:04→17:10)
[2017-05-02] MEDS: FLUCONAZOLE 200MG/100ML 100 ML IV SCH (10:54)
[2017-05-02] MEDS: PIPERACILLIN-TAZOB 2.25GM 50 ML IV SCH ×2 (10:55→21:36)
[2017-05-02] MEDS: SPIRONOLACTONE 25 MG TAB PO SCH (10:55)
[2017-05-02] MEDS: ASPirin-EC 81 mg tab PO SCH (10:56)
[2017-05-02] MEDS: CLOPIDOGREL BISULFATE 75 MG TAB PO SCH (10:56)
[2017-05-02] MEDS: PANTOPRAZOLE 40 MG TAB PO SCH (10:56)
[2017-05-02] MEDS: AMIODARONE HCL 200 MG TAB PO SCH (10:56)
[2017-05-02] MEDS: ENOXAPARIN SOD 60 MG/0.6 ML SYRINGE SC SCH ×2 (10:57→21:37)
[2017-05-02] MEDS: ALLOPURINOL 100 MG TAB PO SCH (10:57)
[2017-05-02] MEDS ORDERED: DEXTROSE (50%) 50ML SYRG IV PRN (11:30)
[2017-05-02] MEDS ORDERED: guaiFENesin-DM 100/10mg/5ml SYR PO PRN (11:30)
[2017-05-02 11:55] VITALS: BP 113/45
[2017-05-02 15:58] VITALS: BP 136/66
[2017-05-02 20:00] VITALS: BP 139/74
[2017-05-02] MEDS: ATORVASTATIN 20 MG TAB PO SCH (21:36)
[2017-05-03] VITALS (9 sets, daily range): BP systolic 102–134; BP diastolic 27–76
[2017-05-03] MEDS: ACCU-CHEK COMFORT CURVE STRIP VI SCH ×6 (01:53→22:27)
[2017-05-03] MEDS: HYDROcodone-ACET 5/325MG TAB PO PRN ×3 (04:28→21:09)
[2017-05-03] MEDS: MIDODRINE HCL 10 MG TAB PO SCH ×3 (05:49→18:47)
[2017-05-03 06:26] LABS: Calcium 9.2 mg/dL (8.5-10.1); Potassium 5.4 mmol/L (3.5-5.1)
[2017-05-03] MEDS: ALBUTEROL SULF 2.5 MG/0.5ML(0.5%) NEB SOLN NEB SCH ×4 (07:16→18:37)
[2017-05-03] MEDS: IPRATROPIUM BROM 0.5 MG/2.5ML INH SOL NEB SCH ×4 (07:16→18:38)
[2017-05-03] MEDS: PRO-STAT 64 30ML PO SCH ×2 (08:00→18:47)
[2017-05-03] MEDS: SEVELAMER 800 MG TAB PO SCH ×3 (08:00→18:47)
[2017-05-03] MEDS: CALCIUM ACETATE 667 MG CAP PO SCH ×3 (08:00→18:47)
[2017-05-03] MEDS ORDERED: SODIUM CHL 0.9% 1000 ML BAG XX ONE (08:15)
[2017-05-03] MEDS ORDERED: EPOETIN ALFA 10,000 UNIT/1 ML VIAL IV ONE (08:15)
[2017-05-03 09:28] LABS: Hemoglobin 7.6 g/dL (13.5-17.5)
[2017-05-03 09:30] LABS: Hematocrit 24.2 % (41.0-53.0); Mean Corpuscular Hemoglobin 27.3 pg (28.0-32.0); Mean Corpuscular Hgb Conc. 31.3 g/dL (32.0-36.0); Mean Corpuscular Volume 87.3 fL (80.0-100.0); Platelet Count (auto) 314 10^3/uL (140-450); Red Blood Cells 2.77 10^6/uL (4.5-5.90); Red Cell Distribution Width 19.2 % (11.8-14.3); White Blood Cell 14.9 10^3/uL (4.4-10.8)
[2017-05-03 09:40] LABS: Basophils % (manual) 0 (0.0-2.0); Blast Cells 0; Metamyelocytes % 0; Myelocytes % 0; Promyelocytes % 0; Reactive Lymphocytes 0
[2017-05-03] MEDS: AMIODARONE HCL 200 MG TAB PO SCH (10:00)
[2017-05-03] MEDS: SPIRONOLACTONE 25 MG TAB PO SCH (10:00)
[2017-05-03 10:48] LABS: Band Neutrophils % (manual) 1; Eosinophils % (manual) 1 (0-7); Lymphocytes % (manual) 8 (10.0-50.0); Monocytes % (manual) 7 (0-12)
[2017-05-03] MEDS ORDERED: TEMAZEPAM 15 MG CAP PO PRN (12:15)
[2017-05-03] MEDS ORDERED: APIXABAN 5 MG TAB PO SCH (12:23)
[2017-05-03] MEDS: CLOPIDOGREL BISULFATE 75 MG TAB PO SCH (12:40)
[2017-05-03] MEDS: PANTOPRAZOLE 40 MG TAB PO SCH (12:41)
[2017-05-03] MEDS: ALLOPURINOL 100 MG TAB PO SCH (12:41)
[2017-05-03] MEDS: ENOXAPARIN SOD 60 MG/0.6 ML SYRINGE SC SCH (12:41)
[2017-05-03] MEDS: ASPirin-EC 81 mg tab PO SCH (12:41)
[2017-05-03] MEDS: FLUCONAZOLE 200MG/100ML 100 ML IV SCH (12:42)
[2017-05-03] MEDS: APIXABAN 5 MG TAB PO SCH (21:01)
[2017-05-03] MEDS: ATORVASTATIN 20 MG TAB PO SCH (21:01)
[2017-05-04] MEDS: IPRATROPIUM BROM 0.5 MG/2.5ML INH SOL NEB SCH ×3 (00:45→13:10)
[2017-05-04] MEDS: ALBUTEROL SULF 2.5 MG/0.5ML(0.5%) NEB SOLN NEB SCH ×3 (00:45→13:10)
[2017-05-04] MEDS: ACCU-CHEK COMFORT CURVE STRIP VI SCH ×3 (02:00→10:22)
[2017-05-04 04:41] VITALS: BP 115/67
[2017-05-04] MEDS: MIDODRINE HCL 10 MG TAB PO SCH ×2 (06:08→11:56)
[2017-05-04 06:14] LABS: Basophils # (auto) 0 uL; Basophils % (auto) 0.3 % (0.0-2.0); Eosinophils # (auto) 0.2 uL; Eosinophils % (auto) 1.8 % (0.0-7.0); Hematocrit 27.6 % (41.0-53.0); Hemoglobin 8.4 g/dL (13.5-17.5); Lymphocytes # (auto) 0.9 uL; Mean Corpuscular Hemoglobin 27.2 pg (28.0-32.0); Mean Corpuscular Hgb Conc. 30.3 g/dL (32.0-36.0); Platelet Count (auto) 359 10^3/uL (140-450)
[2017-05-04 06:17] LABS: Lymphocytes % (auto) 7.4 % (10.0-50.0); Mean Corpuscular Volume 89.5 fL (80.0-100.0); Monocytes # (auto) 1.4 uL; Monocytes % (auto) 11.4 % (0.0-12.0); Neutrophils # (auto) 9.8 uL; Neutrophils % (auto) 79.1 % (37.0-80.0); Nucleated Red Blood Cells % 0.2 %; Red Blood Cells 3.09 10^6/uL (4.5-5.90); Red Cell Distribution Width 19.6 % (11.8-14.3); White Blood Cell 12.4 10^3/uL (4.4-10.8)
[2017-05-04 06:36] LABS: BUN/Creatinine Ratio 5.2; Calcium 8.5 mg/dL (8.5-10.1); Potassium 4.6 mmol/L (3.5-5.1)
[2017-05-04 08:39] VITALS: BP 155/78
[2017-05-04] MEDS: APIXABAN 5 MG TAB PO SCH (09:25)
[2017-05-04] MEDS: PANTOPRAZOLE 40 MG TAB PO SCH (09:25)
[2017-05-04] MEDS: CALCIUM ACETATE 667 MG CAP PO SCH ×2 (09:25→11:56)
[2017-05-04] MEDS: ASPirin-EC 81 mg tab PO SCH (09:26)
[2017-05-04] MEDS: ALLOPURINOL 100 MG TAB PO SCH (09:27)
[2017-05-04] MEDS: AMIODARONE HCL 200 MG TAB PO SCH (09:27)
[2017-05-04] MEDS: SPIRONOLACTONE 25 MG TAB PO SCH (09:27)
[2017-05-04] MEDS: CLOPIDOGREL BISULFATE 75 MG TAB PO SCH (09:27)
[2017-05-04] MEDS: PRO-STAT 64 30ML PO SCH (09:28)
[2017-05-04] MEDS: FLUCONAZOLE 200MG/100ML 100 ML IV SCH ×2 (09:28→10:00)
[2017-05-04] MEDS: SEVELAMER 800 MG TAB PO SCH ×2 (09:29→11:57)
[2017-05-04] MEDS ORDERED: APIX2.5T PO (11:22)
[2017-05-05] MEDS ORDERED: ERGOCALCIFEROL 50,000 UNIT(1.25MG) CAP PO SCH (10:00)
[2017-05-05] MEDS ORDERED: EPOETIN ALFA 10,000 UNIT/1 ML VIAL IV ONE (10:45)
[2017-05-05] MEDS ORDERED: SODIUM CHL 0.9% 1000 ML BAG XX ONE (10:45)
[2017-06-13] MEDS ORDERED: ALLO100T PO (04:55)
[2017-06-13] MEDS ORDERED: ASPI81CH43 PO ×2 (04:58→05:07)
[2017-06-13] MEDS ORDERED: DOCU100T15 PO (04:59)
[2017-06-13] MEDS ORDERED: APIX2.5T PO (05:00)
[2017-06-13] MEDS ORDERED: CHOL20007 PO (05:03)
[2017-06-13] MEDS ORDERED: NITR0.4S29 SL (05:08)
[2017-06-13] MEDS ORDERED: MID10T PO (05:10)
== END 2017-05-04 16:16 | disposition home health service (06) | DRG 720 ==
LOC: EDUNIT# 12:35 → ER 12:35 → EDBD 12:35 → TELE 12:36 → TELE-WESTW 18:14 → DOU IN ICU 04-20 13:11 → ICU WEST 04-21 05:45 → TELE-WESTW 04-22 08:10 → ICU WEST 04-26 14:34 → DOU IN ICU 04-27 06:23 → TELE-WESTW 05-03 22:55
PROVIDERS: ADMIT Nurse Practitioner Acute Care; ATTEND Internal Medicine
PROC: 30233N1 Transfusion of Nonautologous Red Blood Cells into Peripheral Vein, Percutaneous Approach (ICD-10-PCS; 2017-04-17)
PROC: 5A1D70Z Performance of Urinary Filtration, Intermittent, Less than 6 Hours Per Day (ICD-10-PCS; 2017-04-19)
PROC: 5A09357 Assistance with Respiratory Ventilation, Less than 24 Consecutive Hours, Continuous Positive Airway Pressure (ICD-10-PCS; principal; 2017-04-20)
PROC: 5A09357 Assistance with Respiratory Ventilation, Less than 24 Consecutive Hours, Continuous Positive Airway Pressure (ICD-10-PCS; 2017-04-21)
PROC: 5A1D70Z Performance of Urinary Filtration, Intermittent, Less than 6 Hours Per Day (ICD-10-PCS; 2017-04-21)
PROC: 5A1D70Z Performance of Urinary Filtration, Intermittent, Less than 6 Hours Per Day (ICD-10-PCS; 2017-04-23)
PROC: 5A09357 Assistance with Respiratory Ventilation, Less than 24 Consecutive Hours, Continuous Positive Airway Pressure (ICD-10-PCS; 2017-04-24)
PROC: 5A09357 Assistance with Respiratory Ventilation, Less than 24 Consecutive Hours, Continuous Positive Airway Pressure (ICD-10-PCS; 2017-04-25)
PROC: 5A1D70Z Performance of Urinary Filtration, Intermittent, Less than 6 Hours Per Day (ICD-10-PCS; 2017-04-26)
PROC: 0W9G3ZZ Drainage of Peritoneal Cavity, Percutaneous Approach (ICD-10-PCS; 2017-04-27)
PROC: 30233L1 Transfusion of Nonautologous Fresh Plasma into Peripheral Vein, Percutaneous Approach (ICD-10-PCS; 2017-04-28)
PROC: 30233K1 Transfusion of Nonautologous Frozen Plasma into Peripheral Vein, Percutaneous Approach (ICD-10-PCS; 2017-04-28)
PROC: 5A1D70Z Performance of Urinary Filtration, Intermittent, Less than 6 Hours Per Day (ICD-10-PCS; 2017-04-28)
PROC: 4B02XTZ Measurement of Cardiac Defibrillator, External Approach (ICD-10-PCS; 2017-05-03)
DX: A41.9 Sepsis, unspecified organism (principal); J96.21 Acute and chronic respiratory failure with hypoxia; I21.A1 Myocardial infarction type 2; I50.43 Acute on chronic combined systolic (congestive) and diastolic (congestive) heart failure; G93.41 Metabolic encephalopathy; I47.2 Ventricular tachycardia; N18.6 End stage renal disease; R18.8 Other ascites; E11.22 Type 2 diabetes mellitus with diabetic chronic kidney disease; I13.2 Hypertensive heart and chronic kidney disease with heart failure and with stage 5 chronic kidney disease, or end stage renal disease; Z99.2 Dependence on renal dialysis; E11.649 Type 2 diabetes mellitus with hypoglycemia without coma; Z99.81 Dependence on supplemental oxygen; S40.822A Blister (nonthermal) of left upper arm, initial encounter; I42.0 Dilated cardiomyopathy; E66.01 Morbid (severe) obesity due to excess calories; D63.8 Anemia in other chronic diseases classified elsewhere; F32.9 Major depressive disorder, single episode, unspecified; F41.9 Anxiety disorder, unspecified; I27.20 Pulmonary hypertension, unspecified; I82.622 Acute embolism and thrombosis of deep veins of left upper extremity; J44.9 Chronic obstructive pulmonary disease, unspecified; M10.9 Gout, unspecified; M19.90 Unspecified osteoarthritis, unspecified site; E87.5 Hyperkalemia; K59.00 Constipation, unspecified; E78.5 Hyperlipidemia, unspecified; I25.10 Atherosclerotic heart disease of native coronary artery without angina pectoris; Z82.3 Family history of stroke; Z79.4 Long term (current) use of insulin; Z82.49 Family history of ischemic heart disease and other diseases of the circulatory system; Z83.3 Family history of diabetes mellitus; Z91.19 Patient's noncompliance with other medical treatment and regimen; Z95.1 Presence of aortocoronary bypass graft; Z95.810 Presence of automatic (implantable) cardiac defibrillator; Z79.899 Other long term (current) drug therapy; Z79.82 Long term (current) use of aspirin; Z80.8 Family history of malignant neoplasm of other organs or systems; Z95.5 Presence of coronary angioplasty implant and graft; Z68.41 Body mass index [BMI] 40.0-44.9, adult; Z71.3 Dietary counseling and surveillance; X58.XXXA Exposure to other specified factors, initial encounter; Y93.89 Activity, other specified; Y92.89 Other specified places as the place of occurrence of the external cause; Y99.8 Other external cause status; T78.8XXA Other adverse effects, not elsewhere classified, initial encounter
CPT/HCPCS: 10022; 36415; 36600; 49083; 71045; 71046; 74176; 76700; 76942; 80048; 80053; 80076; 80162; 80202; 82805; 82962; 83036; 83525; 83605; 83615; 83735; 83880; 83970; 84100; 84443; 84484; 85007; 85025; 85027; 85610; 85730; 86850; 86900; 86901; 86920; 87040; 87081; 87205; 87400; 90935; 93005; 93306; 93971; 94640; 94660; 94761; 96374; 97116; 97163; 97530; 99291; J0885; J1450; J1642; J2405; J2543; J7042; J7060

== ENCOUNTER 2017-05-15 00:45 | Inpatient (IN) | payer MEDICARE, MEDICAID ==
[~2017-05-15] VITALS: Ht 165.1 cm; Wt 149.3 kg
[~2017-05-15 00:45] MED LIST changes: +APIX2.5T PO; -GLIM2TAB33 PO
[2017-05-15 02:09] LABS: Basophils # (auto) 0.1 uL; Lymphocytes # (auto) 1.2 uL; Monocytes # (auto) 1.1 uL
[2017-05-15 02:11] LABS: Eosinophils # (auto) 0 uL; Eosinophils % (auto) 0.7 % (0.0-7.0); Hemoglobin 8.9 g/dL (13.5-17.5); Mean Corpuscular Hemoglobin 28.3 pg (28.0-32.0); Mean Corpuscular Hgb Conc. 31.7 g/dL (32.0-36.0); Mean Corpuscular Volume 89.3 fL (80.0-100.0); Monocytes % (auto) 17.3 % (0.0-12.0); Platelet Count (auto) 523 10^3/uL (140-450); Red Blood Cells 3.13 10^6/uL (4.5-5.90); White Blood Cell 6.5 10^3/uL (4.4-10.8)
[2017-05-15 02:13] LABS: Red Cell Distribution Width 20.8 % (11.8-14.3)
[2017-05-15 02:22] LABS: INR 1.09 (0.9-1.15); Partial Thromboplastin Time 30.8 sec (22.64-33.71); Prothrombin Time 11.9 sec (9.37-12.3)
[2017-05-15 02:34] LABS: Albumin 2.4 g/dL (3.4-5.0); BUN/Creatinine Ratio 4.5; Calcium 8.2 mg/dL (8.5-10.1); Magnesium 1.9 mg/dL (1.6-2.6); Potassium 3.2 mmol/L (3.5-5.1)
[2017-05-15 02:39] LABS: Bilirubin, Total 0.7 mg/dL (0.2-1.0); Total Protein 8.2 g/dL (6.4-8.2)
[2017-05-15] MEDS ORDERED: ASPirin-EC 325mg tab PO ONE (04:45)
[2017-05-15] MEDS ORDERED: MORPHINE SULFATE 10 MG/ML INJ 1ML SDV IV ONE (04:45)
[2017-05-15] MEDS ORDERED: MORPHINE SULFATE 4 MG/ML SYR/VIAL ONE (04:51)
[2017-05-15] MEDS ORDERED: NITROGLYCERIN 0.4MG/HR TOPICAL PATCH TD ONE (06:00)
[2017-05-15] MEDS ORDERED: ACETAMINOPHEN 500 MG TAB PO PRN (07:00)
[2017-05-15] MEDS ORDERED: DEXTROSE (50%) 50ML SYRG IV PRN (07:00)
[2017-05-15] MEDS: InsuLIN REG 1unit/0.01ml Soln (100units/ml) SC SCH ×4 (07:00→22:00)
[2017-05-15] MEDS ORDERED: ONDANSETRON HCL 4 MG/2 ML VIAL IV PRN (07:00)
[2017-05-15] MEDS: ACCU-CHEK COMFORT CURVE STRIP VI SCH ×4 (07:22→22:34)
[2017-05-15] MEDS ORDERED: SEVELAMER 800 MG TAB PO SCH (08:00)
[2017-05-15 09:22] VITALS: BP 145/85
[2017-05-15] MEDS: CLOPIDOGREL BISULFATE 75 MG TAB PO SCH (10:15)
[2017-05-15] MEDS: GABAPENTIN 300 MG CAP PO SCH (10:15)
[2017-05-15] MEDS: PANTOPRAZOLE 40 MG TAB PO SCH (10:15)
[2017-05-15] MEDS: APIXABAN 2.5 MG TAB PO SCH ×2 (10:15→22:33)
[2017-05-15] MEDS: CARVEDILOL 3.125 MG TAB PO SCH ×2 (10:16→22:00)
[2017-05-15] MEDS: SEVELAMER 800 MG TAB PO SCH ×2 (11:34→17:38)
[2017-05-15] MEDS: HYDROcodone-ACET 5/325MG TAB PO PRN ×2 (11:48→22:33)
[2017-05-15 13:00] VITALS: BP 112/41
[2017-05-15] MEDS ORDERED: NITROGLYCERIN 0.4 MG SL TAB SL PRN (16:15)
[2017-05-15 16:17] VITALS: BP 101/59
[2017-05-15 22:13] VITALS: BP 97/41
[2017-05-16 05:14] VITALS: BP 124/59
[2017-05-16] MEDS: ACCU-CHEK COMFORT CURVE STRIP VI SCH ×4 (06:31→22:07)
[2017-05-16] MEDS: InsuLIN REG 1unit/0.01ml Soln (100units/ml) SC SCH ×4 (06:32→22:00)
[2017-05-16 08:00] VITALS: BP 109/50
[2017-05-16] MEDS: HYDROcodone-ACET 5/325MG TAB PO PRN ×3 (08:10→22:06)
[2017-05-16] MEDS: SEVELAMER 800 MG TAB PO SCH ×3 (08:11→17:39)
[2017-05-16 09:00] VITALS: BP 109/50
[2017-05-16] MEDS: SPIRONOLACTONE 25 MG TAB PO SCH (09:27)
[2017-05-16] MEDS: CLOPIDOGREL BISULFATE 75 MG TAB PO SCH (09:27)
[2017-05-16] MEDS: APIXABAN 2.5 MG TAB PO SCH ×2 (09:28→22:05)
[2017-05-16] MEDS: GABAPENTIN 300 MG CAP PO SCH (09:28)
[2017-05-16] MEDS: CARVEDILOL 3.125 MG TAB PO SCH ×2 (09:28→22:06)
[2017-05-16] MEDS: PANTOPRAZOLE 40 MG TAB PO SCH (09:28)
[2017-05-16] MEDS ORDERED: EPOETIN ALFA 10,000 UNIT/1 ML VIAL IV ONE (10:30)
[2017-05-16] MEDS ORDERED: SODIUM CHL 0.9% 1000 ML BAG XX ONE (10:30)
[2017-05-16 17:00] VITALS: BP 119/60
[2017-05-16 22:22] VITALS: BP 141/69
[2017-05-17 05:50] VITALS: BP 110/48
[2017-05-17 06:17] LABS: Basophils # (auto) 0 uL; Eosinophils # (auto) 0.1 uL; Hemoglobin 9.4 g/dL (13.5-17.5); Mean Corpuscular Volume 93.5 fL (80.0-100.0); Nucleated Red Blood Cells % 0.1 %
[2017-05-17 06:21] LABS: Basophils % (auto) 0.6 % (0.0-2.0); Eosinophils % (auto) 1.6 % (0.0-7.0); Hematocrit 31.6 % (41.0-53.0); Lymphocytes # (auto) 1.2 uL; Lymphocytes % (auto) 15.2 % (10.0-50.0); Mean Corpuscular Hgb Conc. 29.9 g/dL (32.0-36.0); Monocytes % (auto) 12.5 % (0.0-12.0); Neutrophils # (auto) 5.3 uL; Neutrophils % (auto) 70.1 % (37.0-80.0); Platelet Count (auto) 471 10^3/uL (140-450); Red Blood Cells 3.37 10^6/uL (4.5-5.90); White Blood Cell 7.6 10^3/uL (4.4-10.8)
[2017-05-17 06:28] LABS: Red Cell Distribution Width 20.8 % (11.8-14.3)
[2017-05-17] MEDS: InsuLIN REG 1unit/0.01ml Soln (100units/ml) SC SCH ×2 (06:57→11:17)
[2017-05-17] MEDS: ACCU-CHEK COMFORT CURVE STRIP VI SCH ×2 (06:58→11:17)
[2017-05-17] MEDS: SEVELAMER 800 MG TAB PO SCH ×2 (08:00→11:47)
[2017-05-17 08:42] VITALS: BP 128/81
[2017-05-17] MEDS: SPIRONOLACTONE 25 MG TAB PO SCH (10:00)
[2017-05-17] MEDS: CARVEDILOL 3.125 MG TAB PO SCH (10:00)
[2017-05-17] MEDS: GABAPENTIN 300 MG CAP PO SCH (10:11)
[2017-05-17] MEDS: PANTOPRAZOLE 40 MG TAB PO SCH (10:11)
[2017-05-17] MEDS: APIXABAN 2.5 MG TAB PO SCH (10:11)
[2017-05-17] MEDS: CLOPIDOGREL BISULFATE 75 MG TAB PO SCH (10:11)
[2017-05-17] MEDS: HYDROcodone-ACET 5/325MG TAB PO PRN (10:11)
[2017-05-17 13:00] VITALS: BP 93/55
[2017-06-13] MEDS ORDERED: ALLO100T PO (04:55)
[2017-06-13] MEDS ORDERED: ASPI81CH43 PO ×2 (04:58→05:07)
[2017-06-13] MEDS ORDERED: DOCU100T15 PO (04:59)
[2017-06-13] MEDS ORDERED: APIX2.5T PO (05:00)
[2017-06-13] MEDS ORDERED: CHOL20007 PO (05:03)
[2017-06-13] MEDS ORDERED: NITR0.4S29 SL (05:08)
[2017-06-13] MEDS ORDERED: MID10T PO (05:10)
== END 2017-05-17 12:55 | disposition left against medical advice (07) | DRG 291 ==
LOC: EDBD 00:45 → ER 00:45 → TELE 00:46 → TELE-WESTW 09:29
PROVIDERS: ADMIT Nurse Practitioner Family; ATTEND Internal Medicine
PROC: 5A1D70Z Performance of Urinary Filtration, Intermittent, Less than 6 Hours Per Day (ICD-10-PCS; principal; 2017-05-17)
DX: I13.2 Hypertensive heart and chronic kidney disease with heart failure and with stage 5 chronic kidney disease, or end stage renal disease (principal); N18.6 End stage renal disease; E11.22 Type 2 diabetes mellitus with diabetic chronic kidney disease; I42.0 Dilated cardiomyopathy; I50.41 Acute combined systolic (congestive) and diastolic (congestive) heart failure; Z68.43 Body mass index [BMI] 50.0-59.9, adult; E66.2 Morbid (severe) obesity with alveolar hypoventilation; D63.8 Anemia in other chronic diseases classified elsewhere; Z53.21 Procedure and treatment not carried out due to patient leaving prior to being seen by health care provider; E78.5 Hyperlipidemia, unspecified; E87.5 Hyperkalemia; I25.10 Atherosclerotic heart disease of native coronary artery without angina pectoris; J44.9 Chronic obstructive pulmonary disease, unspecified; F32.9 Major depressive disorder, single episode, unspecified; F41.9 Anxiety disorder, unspecified; K59.00 Constipation, unspecified; M10.9 Gout, unspecified; Z95.1 Presence of aortocoronary bypass graft; Z99.2 Dependence on renal dialysis; I25.2 Old myocardial infarction; Z79.01 Long term (current) use of anticoagulants; Z79.82 Long term (current) use of aspirin; Z82.3 Family history of stroke; Z82.49 Family history of ischemic heart disease and other diseases of the circulatory system; Z83.3 Family history of diabetes mellitus; Z87.891 Personal history of nicotine dependence; Z95.810 Presence of automatic (implantable) cardiac defibrillator; Z98.61 Coronary angioplasty status; Z99.81 Dependence on supplemental oxygen; Z79.899 Other long term (current) drug therapy
CPT/HCPCS: 36415; 71045; 80053; 82962; 83735; 83880; 84132; 84443; 84484; 85025; 85610; 85730; 87081; 90935; 93005; 96374; J0885; J1642

== ENCOUNTER 2017-05-26 14:18 | Inpatient (IN) | payer MEDICARE, MEDICAID ==
[~2017-05-26] VITALS: Ht 167.6 cm; Wt 95.0 kg
[2017-05-26 15:40] LABS: Albumin 2.6 g/dL (3.4-5.0); BUN/Creatinine Ratio 3.5; Calcium 8.1 mg/dL (8.5-10.1); Potassium 3.1 mmol/L (3.5-5.1)
[2017-05-26 15:57] LABS: Bilirubin, Total 0.9 mg/dL (0.2-1.0); Total Protein 8.7 g/dL (6.4-8.2)
[2017-05-26 16:10] LABS: Basophils # (auto) 0 uL; Basophils % (auto) 0.6 % (0.0-2.0); Eosinophils # (auto) 0.2 uL; Eosinophils % (auto) 2.8 % (0.0-7.0); Hematocrit 39.2 % (41.0-53.0); Hemoglobin 12.1 g/dL (13.5-17.5); Lymphocytes # (auto) 1.2 uL; Lymphocytes % (auto) 15.9 % (10.0-50.0); Mean Corpuscular Hemoglobin 28.1 pg (28.0-32.0); Mean Corpuscular Hgb Conc. 30.8 g/dL (32.0-36.0); Mean Corpuscular Volume 91.3 fL (80.0-100.0); Monocytes # (auto) 0.8 uL; Monocytes % (auto) 11.1 % (0.0-12.0); Neutrophils # (auto) 5.2 uL; Neutrophils % (auto) 69.6 % (37.0-80.0); Nucleated Red Blood Cells % 1.2 %; Platelet Count (auto) 346 10^3/uL (140-450); Red Blood Cells 4.29 10^6/uL (4.5-5.90); White Blood Cell 7.5 10^3/uL (4.4-10.8)
[2017-05-26] MEDS ORDERED: SODIUM CHLORIDE 0.9% 1,000 ML IV ONE (16:14)
[2017-05-26 17:29] LABS: INR 1.04 (0.9-1.15); Prothrombin Time 11.3 sec (9.37-12.3)
[2017-05-26] MEDS ORDERED: ACETAMINOPHEN 500 MG TAB PO PRN (17:45)
[2017-05-26] MEDS ORDERED: DEXTROSE (50%) 50ML SYRG IV PRN (17:45)
[2017-05-26] MEDS ORDERED: MORPHINE SULFATE 4 MG/ML SYR/VIAL IV PRN ×2 (17:45)
[2017-05-26] MEDS ORDERED: TEMAZEPAM 15 MG CAP PO PRN (17:45)
[2017-05-26] MEDS ORDERED: DOCUSATE SOD 100 MG CAP PO PRN (17:45)
[2017-05-26] MEDS ORDERED: FUROSEMIDE 40 MG/4 ML VIAL IV ONE (17:45)
[2017-05-26] MEDS ORDERED: ONDANSETRON 8 MG PO PRN (17:45)
[2017-05-26] MEDS ORDERED: LORazepam 0.5 MG TAB PO PRN (17:45)
[2017-05-26] MEDS ORDERED: NITROGLYCERIN 0.4 MG SL TAB SL PRN (17:45)
[2017-05-26] MEDS: PROMETHAZINE HCL 25 MG/ML 1ML IV PRN (18:17)
[2017-05-26] MEDS ORDERED: ONDANSETRON ODT 4 MG TAB PO PRN (18:30)
[2017-05-26 19:15] LABS: CRP High Sensitivity 8.85 mg/dL (< 0.3)
[2017-05-26] MEDS: SEVELAMER 800 MG TAB PO SCH (20:03)
[2017-05-26] MEDS: CALCIUM ACETATE 667 MG CAP PO SCH (20:03)
[2017-05-26] MEDS ORDERED: HEPARIN DRIP/D5W 100UNITS/ML 250 ML IV SCH (20:45)
[2017-05-26] MEDS ORDERED: HEPARIN SODIUM (PORCINE) 5000 UNITS/ML 1ML VIAL IV ONE (20:45)
[2017-05-26] MEDS ORDERED: ENOXAPARIN SOD 80 MG/0.8ML SYRINGE SC SCH (22:00)
[2017-05-26] MEDS ORDERED: APIXABAN 2.5 MG TAB PO SCH (22:00)
[2017-05-26] MEDS: GABAPENTIN 300 MG CAP PO SCH (22:52)
[2017-05-26] MEDS: ATORVASTATIN 20 MG TAB PO SCH (22:52)
[2017-05-26] MEDS: CARVEDILOL 3.125 MG TAB PO SCH (22:53)
[2017-05-26] MEDS: ACCU-CHEK COMFORT CURVE STRIP VI SCH (23:00)
[2017-05-26] MEDS: InsuLIN REG 1unit/0.01ml Soln (100units/ml) SC SCH (23:10)
[2017-05-27] VITALS (11 sets, daily range): BP systolic 83–135; BP diastolic 40–78
[2017-05-27 04:07] LABS: Basophils # (auto) 0 uL; Eosinophils # (auto) 0.3 uL; Eosinophils % (auto) 4.1 % (0.0-7.0); Lymphocytes # (auto) 1.1 uL; Monocytes # (auto) 1.2 uL
[2017-05-27 04:09] LABS: Basophils % (auto) 0.6 % (0.0-2.0); Hematocrit 21.2 % (41.0-53.0); Lymphocytes % (auto) 14.5 % (10.0-50.0); Mean Corpuscular Hemoglobin 28.8 pg (28.0-32.0); Mean Corpuscular Hgb Conc. 31.6 g/dL (32.0-36.0); Mean Corpuscular Volume 91.2 fL (80.0-100.0); Monocytes % (auto) 15.5 % (0.0-12.0); Neutrophils # (auto) 4.9 uL; Neutrophils % (auto) 65.3 % (37.0-80.0); Nucleated Red Blood Cells % 0.2 %; Platelet Count (auto) 434 10^3/uL (140-450); Red Blood Cells 2.32 10^6/uL (4.5-5.90); White Blood Cell 7.5 10^3/uL (4.4-10.8)
[2017-05-27 04:20] LABS: INR 1.05 (0.9-1.15); Partial Thromboplastin Time 43.1 sec (22.64-33.71); Prothrombin Time 11.4 sec (9.37-12.3)
[2017-05-27 04:43] LABS: Hemoglobin 6.7 g/dL (13.5-17.5); Red Cell Distribution Width 20.4 % (11.8-14.3)
[2017-05-27 04:48] LABS: Alanine Aminotransferase < 6 U/L (16-61); Albumin 2.2 g/dL (3.4-5.0); Alkaline Phosphatase 77 U/L (45-117); Anion Gap 12 (5-15); Aspartate Aminotransferase 17 U/L (15-37); Bilirubin, Total 0.8 mg/dL (0.2-1.0); Blood Urea Nitrogen 18 mg/dL (7-18); Calcium 8.7 mg/dL (8.5-10.1); Carbon Dioxide 29 mmol/L (21-32); Chloride 96 mmol/L (98-107); Cholesterol 97 mg/dL (< 200); GFR African American 18 mL/min; GFR Non-African American 15 mL/min; Glucose 88 mg/dL (74-106); HDL Cholesterol 19 mg/dL (40-59); LDL Cholesterol 74 mg/dL (< 100); Sodium 137 mmol/L (136-145); Total Protein 7.6 g/dL (6.4-8.2); Triglycerides 134 mg/dL (< 150)
[2017-05-27] MEDS: MIDODRINE HCL 10 MG TAB PO SCH ×3 (08:00→18:28)
[2017-05-27] MEDS: ACCU-CHEK COMFORT CURVE STRIP VI SCH ×4 (08:01→21:46)
[2017-05-27] MEDS: InsuLIN REG 1unit/0.01ml Soln (100units/ml) SC SCH ×4 (08:01→21:47)
[2017-05-27] MEDS: SEVELAMER 800 MG TAB PO SCH ×3 (08:11→18:28)
[2017-05-27] MEDS: CALCIUM ACETATE 667 MG CAP PO SCH ×3 (08:11→18:28)
[2017-05-27] MEDS: HYDROcodone-ACET 5/325MG TAB PO PRN ×2 (09:02→18:29)
[2017-05-27] MEDS ORDERED: ASPirin 81 mg TAB PO SCH (10:00)
[2017-05-27] MEDS ORDERED: ASPirin-EC 81 mg tab PO SCH (10:00)
[2017-05-27] MEDS ORDERED: FUROSEMIDE 40 MG/4 ML VIAL IV SCH (10:00)
[2017-05-27] MEDS ORDERED: AMIODARONE HCL 200 MG TAB PO SCH (10:00)
[2017-05-27] MEDS ORDERED: PANTOPRAZOLE 40 MG TAB PO SCH (10:00)
[2017-05-27] MEDS: CITALOPRAM HYDROBR 20 MG TAB PO SCH (10:02)
[2017-05-27] MEDS: CARVEDILOL 3.125 MG TAB PO SCH ×2 (10:03→21:45)
[2017-05-27] MEDS: GABAPENTIN 300 MG CAP PO SCH ×2 (10:03→21:46)
[2017-05-27] MEDS: CLOPIDOGREL BISULFATE 75 MG TAB PO SCH (10:03)
[2017-05-27] MEDS: ALLOPURINOL 100 MG TAB PO SCH (10:03)
[2017-05-27] MEDS: PANTOPRAZOLE 40 MG TAB PO SCH (10:03)
[2017-05-27] MEDS: CINACALCET HYDROCHLORIDE 30 MG TAB PO SCH (10:34)
[2017-05-27 11:33] LABS: INR 1.07 (0.9-1.15); Partial Thromboplastin Time 29.2 sec (22.64-33.71); Prothrombin Time 11.7 sec (9.37-12.3)
[2017-05-27] MEDS: DOBUTamine 1000MCG/ML 250 ML IV SCH (14:13)
[2017-05-27] MEDS: ALBUMIN 25% 100 ML IV SCH ×2 (18:00→19:04)
[2017-05-27] MEDS: ATORVASTATIN 20 MG TAB PO SCH (21:46)
[2017-05-27] MEDS ORDERED: APIXABAN 2.5 MG TAB PO SCH (22:00)
[2017-05-28] VITALS (20 sets, daily range): BP systolic 85–156; BP diastolic 31–107
[2017-05-28 05:00] LABS: Basophils # (auto) 0.1 uL; Basophils % (auto) 0.7 % (0.0-2.0); Eosinophils # (auto) 0.4 uL; Hematocrit 24.6 % (41.0-53.0); Hemoglobin 7.6 g/dL (13.5-17.5); Lymphocytes # (auto) 0.9 uL; Lymphocytes % (auto) 12.9 % (10.0-50.0); Mean Corpuscular Hemoglobin 28.7 pg (28.0-32.0); Mean Corpuscular Volume 92.6 fL (80.0-100.0); Monocytes # (auto) 1.1 uL; Monocytes % (auto) 14.6 % (0.0-12.0); Neutrophils # (auto) 4.8 uL; Neutrophils % (auto) 66.8 % (37.0-80.0); Nucleated Red Blood Cells % 0.2 %; Platelet Count (auto) 399 10^3/uL (140-450); Red Blood Cells 2.66 10^6/uL (4.5-5.90); Red Cell Distribution Width 19.4 % (11.8-14.3); White Blood Cell 7.2 10^3/uL (4.4-10.8)
[2017-05-28 05:11] LABS: Calcium 8.4 mg/dL (8.5-10.1); Potassium 3.5 mmol/L (3.5-5.1)
[2017-05-28 05:13] LABS: BUN/Creatinine Ratio 4.2
[2017-05-28] MEDS: DOBUTamine 1000MCG/ML 250 ML IV SCH (06:36)
[2017-05-28] MEDS: InsuLIN REG 1unit/0.01ml Soln (100units/ml) SC SCH ×4 (06:37→22:00)
[2017-05-28] MEDS: ACCU-CHEK COMFORT CURVE STRIP VI SCH ×4 (06:37→22:16)
[2017-05-28] MEDS: MIDODRINE HCL 10 MG TAB PO SCH ×3 (06:37→17:55)
[2017-05-28] MEDS: SEVELAMER 800 MG TAB PO SCH ×3 (08:00→17:56)
[2017-05-28] MEDS: CALCIUM ACETATE 667 MG CAP PO SCH ×3 (08:00→17:55)
[2017-05-28] MEDS ORDERED: SODIUM CHL 0.9% 1000 ML BAG XX ONE (08:15)
[2017-05-28] MEDS ORDERED: EPOETIN ALFA 10,000 UNIT/1 ML VIAL IV ONE (08:15)
[2017-05-28] MEDS: HYDROcodone-ACET 5/325MG TAB PO PRN ×2 (08:27→23:11)
[2017-05-28] MEDS: CITALOPRAM HYDROBR 20 MG TAB PO SCH (13:36)
[2017-05-28] MEDS: GABAPENTIN 300 MG CAP PO SCH ×2 (13:37→22:16)
[2017-05-28] MEDS: CLOPIDOGREL BISULFATE 75 MG TAB PO SCH (13:37)
[2017-05-28] MEDS: PANTOPRAZOLE 40 MG TAB PO SCH (13:37)
[2017-05-28] MEDS: ALLOPURINOL 100 MG TAB PO SCH (13:37)
[2017-05-28] MEDS: CINACALCET HYDROCHLORIDE 30 MG TAB PO SCH (13:44)
[2017-05-28] MEDS ORDERED: diphenhdrAMINE HCL 50 MG/1 ML VL IV ONE (13:45)
[2017-05-28] MEDS: PROMETHAZINE HCL 25 MG/ML 1ML IV PRN (16:05)
[2017-05-28] MEDS ORDERED: CARVEDILOL 3.125 MG TAB PO SCH (22:00)
[2017-05-28] MEDS ORDERED: APIXABAN 2.5 MG TAB PO SCH (22:00)
[2017-05-28] MEDS: ATORVASTATIN 20 MG TAB PO SCH (22:15)
[2017-05-29] VITALS (8 sets, daily range): BP systolic 104–126; BP diastolic 54–86
[2017-05-29] MEDS: DOBUTamine 1000MCG/ML 250 ML IV SCH ×2 (02:09→10:57)
[2017-05-29 05:37] LABS: Basophils # (auto) 0 uL; Basophils % (auto) 0.2 % (0.0-2.0); Eosinophils # (auto) 0 uL; Eosinophils % (auto) 0.2 % (0.0-7.0); Hematocrit 29.2 % (41.0-53.0); Hemoglobin 9.1 g/dL (13.5-17.5); Lymphocytes % (auto) 5.8 % (10.0-50.0); Mean Corpuscular Hemoglobin 28.1 pg (28.0-32.0); Mean Corpuscular Hgb Conc. 31.2 g/dL (32.0-36.0); Mean Corpuscular Volume 90.1 fL (80.0-100.0); Monocytes # (auto) 1.7 uL; Monocytes % (auto) 10.2 % (0.0-12.0); Neutrophils # (auto) 13.7 uL; Neutrophils % (auto) 83.6 % (37.0-80.0); Nucleated Red Blood Cells % 0.1 %; Platelet Count (auto) 363 10^3/uL (140-450); Red Blood Cells 3.24 10^6/uL (4.5-5.90); Red Cell Distribution Width 19.3 % (11.8-14.3); White Blood Cell 16.4 10^3/uL (4.4-10.8)
[2017-05-29 05:51] LABS: BUN/Creatinine Ratio 3.7; Calcium 9.4 mg/dL (8.5-10.1); Potassium 3.6 mmol/L (3.5-5.1)
[2017-05-29] MEDS: MIDODRINE HCL 10 MG TAB PO SCH ×3 (06:30→17:46)
[2017-05-29] MEDS: ACCU-CHEK COMFORT CURVE STRIP VI SCH ×4 (07:00→22:21)
[2017-05-29] MEDS: InsuLIN REG 1unit/0.01ml Soln (100units/ml) SC SCH ×4 (07:00→22:00)
[2017-05-29] MEDS: CALCIUM ACETATE 667 MG CAP PO SCH ×3 (08:00→17:47)
[2017-05-29] MEDS: SEVELAMER 800 MG TAB PO SCH ×3 (08:28→17:47)
[2017-05-29] MEDS ORDERED: AMIODARONE HCL 200 MG TAB PO SCH (10:00)
[2017-05-29] MEDS: PANTOPRAZOLE 40 MG TAB PO SCH (10:20)
[2017-05-29] MEDS: CITALOPRAM HYDROBR 20 MG TAB PO SCH (10:20)
[2017-05-29] MEDS: CLOPIDOGREL BISULFATE 75 MG TAB PO SCH (10:20)
[2017-05-29] MEDS: ALLOPURINOL 100 MG TAB PO SCH (10:20)
[2017-05-29] MEDS: GABAPENTIN 300 MG CAP PO SCH ×2 (10:20→22:21)
[2017-05-29] MEDS: CINACALCET HYDROCHLORIDE 30 MG TAB PO SCH (10:22)
[2017-05-29] MEDS ORDERED: ERGOCALCIFEROL 50,000 UNIT(1.25MG) CAP PO SCH (12:00)
[2017-05-29] MEDS ORDERED: VANCOMYCIN PER PHARMACY 0 MG IV SCH (13:45)
[2017-05-29] MEDS ORDERED: cefTRIAXone 1GM/10ml IVPUSH 10 ML IV ONE (13:45)
[2017-05-29] MEDS: PROMETHAZINE HCL 25 MG/ML 1ML IV PRN (15:20)
[2017-05-29] MEDS ORDERED: VANCOMYCIN 1GM/250ML 250 ML IV ONE (16:00)
[2017-05-29] MEDS: PRO-STAT 64 30ML PO SCH (17:48)
[2017-05-29] MEDS: ATORVASTATIN 20 MG TAB PO SCH (22:21)
[2017-05-30] VITALS: BP 126/94
[2017-05-30] MEDS: DOBUTamine 1000MCG/ML 250 ML IV SCH ×2 (02:16→15:11)
[2017-05-30 05:24] LABS: Basophils # (auto) 0 uL; Basophils % (auto) 0.3 % (0.0-2.0); Eosinophils # (auto) 0.1 uL; Eosinophils % (auto) 0.8 % (0.0-7.0); Hematocrit 28.6 % (41.0-53.0); Lymphocytes # (auto) 0.9 uL; Lymphocytes % (auto) 6.6 % (10.0-50.0); Mean Corpuscular Hemoglobin 28.2 pg (28.0-32.0); Mean Corpuscular Hgb Conc. 31.3 g/dL (32.0-36.0); Mean Corpuscular Volume 90.1 fL (80.0-100.0); Monocytes # (auto) 1.2 uL; Monocytes % (auto) 9.5 % (0.0-12.0); Neutrophils # (auto) 10.8 uL; Neutrophils % (auto) 82.8 % (37.0-80.0); Platelet Count (auto) 335 10^3/uL (140-450); Red Blood Cells 3.18 10^6/uL (4.5-5.90); Red Cell Distribution Width 19.7 % (11.8-14.3)
[2017-05-30 05:48] LABS: Alanine Aminotransferase < 6 U/L (16-61); Albumin 2.6 g/dL (3.4-5.0); Alkaline Phosphatase 63 U/L (45-117); Anion Gap 11 (5-15); Aspartate Aminotransferase 11 U/L (15-37); BUN/Creatinine Ratio 4.4; Bilirubin, Total 1.2 mg/dL (0.2-1.0); Blood Urea Nitrogen 27 mg/dL (7-18); Calcium 8.8 mg/dL (8.5-10.1); Carbon Dioxide 26 mmol/L (21-32); Chloride 97 mmol/L (98-107); GFR African American 12 mL/min; GFR Non-African American 10 mL/min; Glucose 94 mg/dL (74-106); Potassium 4.1 mmol/L (3.5-5.1); Sodium 134 mmol/L (136-145); Total Protein 7.7 g/dL (6.4-8.2)
[2017-05-30] MEDS: ACCU-CHEK COMFORT CURVE STRIP VI SCH ×4 (06:53→21:36)
[2017-05-30] MEDS: InsuLIN REG 1unit/0.01ml Soln (100units/ml) SC SCH ×4 (06:53→21:36)
[2017-05-30] MEDS: MIDODRINE HCL 10 MG TAB PO SCH ×3 (07:06→17:35)
[2017-05-30] MEDS: SEVELAMER 800 MG TAB PO SCH ×3 (08:00→17:37)
[2017-05-30] MEDS: PRO-STAT 64 30ML PO SCH ×2 (08:00→17:37)
[2017-05-30] MEDS: CALCIUM ACETATE 667 MG CAP PO SCH ×3 (08:29→17:34)
[2017-05-30] MEDS: cefTRIAXone 1GM/10ml IVPUSH 10 ML IV SCH (09:01)
[2017-05-30] MEDS: CLOPIDOGREL BISULFATE 75 MG TAB PO SCH (10:13)
[2017-05-30] MEDS: CITALOPRAM HYDROBR 20 MG TAB PO SCH (10:13)
[2017-05-30] MEDS: PANTOPRAZOLE 40 MG TAB PO SCH (10:13)
[2017-05-30] MEDS: GABAPENTIN 300 MG CAP PO SCH ×2 (10:13→21:28)
[2017-05-30] MEDS: ALLOPURINOL 100 MG TAB PO SCH (10:14)
[2017-05-30] MEDS: CINACALCET HYDROCHLORIDE 30 MG TAB PO SCH (10:18)
[2017-05-30] MEDS ORDERED: VANCOMYCIN 1GM/250ML 250 ML IV ONE (10:30)
[2017-05-30 12:00] VITALS: BP 120/49
[2017-05-30 16:00] VITALS: BP 116/70
[2017-05-30 19:55] VITALS: BP 98/64
[2017-05-30] MEDS: ATORVASTATIN 20 MG TAB PO SCH (21:28)
[2017-05-31] VITALS (7 sets, daily range): BP systolic 98–124; BP diastolic 55–78
[2017-05-31] MEDS: HYDROcodone-ACET 5/325MG TAB PO PRN (01:08)
[2017-05-31 05:50] LABS: Basophils # (auto) 0 uL; Basophils % (auto) 0.1 % (0.0-2.0); Eosinophils # (auto) 0.1 uL; Eosinophils % (auto) 1.6 % (0.0-7.0); Hematocrit 28.5 % (41.0-53.0); Lymphocytes # (auto) 0.7 uL; Lymphocytes % (auto) 8.1 % (10.0-50.0); Mean Corpuscular Hemoglobin 28.4 pg (28.0-32.0); Mean Corpuscular Hgb Conc. 31.8 g/dL (32.0-36.0); Mean Corpuscular Volume 89.3 fL (80.0-100.0); Monocytes % (auto) 11.7 % (0.0-12.0); Neutrophils # (auto) 6.9 uL; Neutrophils % (auto) 78.5 % (37.0-80.0); Nucleated Red Blood Cells % 0.1 %; Platelet Count (auto) 306 10^3/uL (140-450); Red Blood Cells 3.19 10^6/uL (4.5-5.90); Red Cell Distribution Width 18.8 % (11.8-14.3); White Blood Cell 8.8 10^3/uL (4.4-10.8)
[2017-05-31 06:26] LABS: Alanine Aminotransferase < 6 U/L (16-61); Albumin 2.7 g/dL (3.4-5.0); Alkaline Phosphatase 60 U/L (45-117); Anion Gap 11 (5-15); Aspartate Aminotransferase 12 U/L (15-37); BUN/Creatinine Ratio 5.3; Bilirubin, Total 1.2 mg/dL (0.2-1.0); Blood Urea Nitrogen 37 mg/dL (7-18); Calcium 8.9 mg/dL (8.5-10.1); Carbon Dioxide 25 mmol/L (21-32); Chloride 94 mmol/L (98-107); GFR African American 11 mL/min; GFR Non-African American 9 mL/min; Glucose 80 mg/dL (74-106); Potassium 4.1 mmol/L (3.5-5.1); Sodium 130 mmol/L (136-145); Total Protein 7.9 g/dL (6.4-8.2)
[2017-05-31] MEDS: InsuLIN REG 1unit/0.01ml Soln (100units/ml) SC SCH ×3 (06:49→17:00)
[2017-05-31] MEDS: ACCU-CHEK COMFORT CURVE STRIP VI SCH ×3 (06:49→17:00)
[2017-05-31] MEDS: MIDODRINE HCL 10 MG TAB PO SCH ×3 (06:49→16:55)
[2017-05-31] MEDS: PRO-STAT 64 30ML PO SCH ×2 (08:00→18:00)
[2017-05-31] MEDS: SEVELAMER 800 MG TAB PO SCH ×3 (08:10→18:00)
[2017-05-31] MEDS: CALCIUM ACETATE 667 MG CAP PO SCH ×3 (08:10→18:00)
[2017-05-31] MEDS: cefTRIAXone 1GM/10ml IVPUSH 10 ML IV SCH (09:05)
[2017-05-31] MEDS: GABAPENTIN 300 MG CAP PO SCH (10:00)
[2017-05-31] MEDS: CLOPIDOGREL BISULFATE 75 MG TAB PO SCH (10:00)
[2017-05-31] MEDS: DOBUTamine 1000MCG/ML 250 ML IV SCH (10:54)
[2017-05-31] MEDS ORDERED: DOXY-216 PO (15:19)
[2017-05-31] MEDS ORDERED: VANCOMYCIN 1GM/250ML 250 ML IV SCH (18:00)
[2017-05-31] MEDS: CITALOPRAM HYDROBR 20 MG TAB PO SCH (20:38)
[2017-05-31] MEDS: PANTOPRAZOLE 40 MG TAB PO SCH (20:39)
[2017-05-31] MEDS: ALLOPURINOL 100 MG TAB PO SCH (20:39)
[2017-05-31] MEDS: CINACALCET HYDROCHLORIDE 30 MG TAB PO SCH (20:41)
[2017-06-13] MEDS ORDERED: ALLO100T PO (04:55)
[2017-06-13] MEDS ORDERED: ASPI81CH43 PO ×2 (04:58→05:07)
[2017-06-13] MEDS ORDERED: DOCU100T15 PO (04:59)
[2017-06-13] MEDS ORDERED: APIX2.5T PO (05:00)
[2017-06-13] MEDS ORDERED: CHOL20007 PO (05:03)
[2017-06-13] MEDS ORDERED: NITR0.4S29 SL (05:08)
[2017-06-13] MEDS ORDERED: MID10T PO (05:10)
== END 2017-05-31 20:55 | disposition home health service (06) | DRG 280 ==
LOC: EDBD 14:18 → ER 14:18 → TELE 14:19 → DOU IN ICU 05-27 21:24
PROVIDERS: ADMIT Internal Medicine; ATTEND Internal Medicine
PROC: 30233N1 Transfusion of Nonautologous Red Blood Cells into Peripheral Vein, Percutaneous Approach (ICD-10-PCS; principal; 2017-05-27)
PROC: 5A1D70Z Performance of Urinary Filtration, Intermittent, Less than 6 Hours Per Day (ICD-10-PCS; 2017-05-28)
PROC: 5A1D70Z Performance of Urinary Filtration, Intermittent, Less than 6 Hours Per Day (ICD-10-PCS; 2017-05-31)
DX: I21.4 Non-ST elevation (NSTEMI) myocardial infarction (principal); N18.6 End stage renal disease; E43 Unspecified severe protein-calorie malnutrition; J96.10 Chronic respiratory failure, unspecified whether with hypoxia or hypercapnia; I27.20 Pulmonary hypertension, unspecified; I13.2 Hypertensive heart and chronic kidney disease with heart failure and with stage 5 chronic kidney disease, or end stage renal disease; I50.43 Acute on chronic combined systolic (congestive) and diastolic (congestive) heart failure; E11.22 Type 2 diabetes mellitus with diabetic chronic kidney disease; I25.5 Ischemic cardiomyopathy; D63.8 Anemia in other chronic diseases classified elsewhere; E78.5 Hyperlipidemia, unspecified; E87.6 Hypokalemia; F32.9 Major depressive disorder, single episode, unspecified; F41.9 Anxiety disorder, unspecified; I25.10 Atherosclerotic heart disease of native coronary artery without angina pectoris; J44.9 Chronic obstructive pulmonary disease, unspecified; K21.9 Gastro-esophageal reflux disease without esophagitis; Z79.4 Long term (current) use of insulin; Z82.3 Family history of stroke; Z82.49 Family history of ischemic heart disease and other diseases of the circulatory system; Z95.1 Presence of aortocoronary bypass graft; Z83.3 Family history of diabetes mellitus; Z68.33 Body mass index [BMI] 33.0-33.9, adult; Z95.5 Presence of coronary angioplasty implant and graft; Z95.810 Presence of automatic (implantable) cardiac defibrillator; Z99.2 Dependence on renal dialysis; Z99.81 Dependence on supplemental oxygen
CPT/HCPCS: 36415; 36430; 71045; 71046; 80048; 80053; 80061; 80202; 82550; 82962; 83036; 83735; 83880; 84443; 84484; 85025; 85379; 85610; 85652; 85730; 86141; 86850; 86900; 86901; 86920; 87040; 87077; 87081; 87186; 90935; 93005; 96361; 96374; 96375; J0885; J1642; J1815; P9047